=== PATIENT | female | born 1975 | race Caucasian/White ===

== ENCOUNTER → 2017-02-05 | Outpatient (CLI) | payer OTHER ==
[~2017-02-05] MED LIST: CYCL10TA6 PO; [UNRECOGNIZED DRUG - CODE] PO; meloxicam PO
--- NOTE | 2017-02-05 16:09 | MAMMOGRAPHY REPORT ---
BILATERAL FIRST EVER DIGITAL SCREENING MAMMOGRAM TOMOSYNTHESIS WITH CAD: 02/05/2017 CLINICAL HISTORY: Baseline examination. Patient has no complaints. TECHNIQUE: Breast tomosynthesis in addition to standard 2D mammography was performed. Current study was also evaluated with a Computer Aided Detection (CAD) system. COMPARISON: No prior exams were available for comparison. BREAST COMPOSITION: The tissue of both breasts is heterogeneously dense, which may obscure small mas ses. FINDINGS: No suspicious masses, calcifications, or areas of architectural distortion are noted in ei ther breast. IMPRESSION: ACR BI-RADS CATEGORY 1: NEGATIVE There is no mammographic evidence of malignancy. A 1 year screening mammogram is recommended. The pa tient will receive written notification of the results. Approximately 10% of breast cancers are not detected with mammography. A negative mammographic report should not delay biopsy if a clinically suggestive mass is present. Romana Deal M.D. /:02/05/2017 15:44:46 Lab Manager: Vivien Solis, [facility] letter sent: Normal 1/2 BI-RADS Code: ACR BI-RADS Category 1: Negative
== END | disposition home or self-care (01) ==
LOC: C.MAMM 12:32
PROVIDERS: ATTEND Obstetrics & Gynecology
DX: Z12.31 Encounter for screening mammogram for malignant neoplasm of breast (principal)

== ENCOUNTER → 2017-09-14 | Outpatient (CLI) | payer OTHER ==
--- NOTE | 2017-09-14 09:55 | DIAGNOSTIC IMAGING REPORT ---
CHEST 2 VIEWS ROUTINE CLINICAL HISTORY: Cough. Difficulty breathing. COMPARISON STUDY: Chest radiograph May 30, 2014. FINDINGS: Lung volumes are normal. No pneumothorax or pleural effusion is noted. There is no consolidation. Pulmonary vascularity is normal. Cardiomediastinal silhouette is unremarkable. IMPRESSION: No acute cardiopulmonary findings. Electronically signed by: Edson Horn M.D. 09/14/2017 9:54 AM Dictated Date/Time: 09/14/2017 9:53 AM
== END | disposition home or self-care (01) ==
LOC: C.RAD 08:50
PROVIDERS: ATTEND Family Medicine
DX: R05 Cough (principal)

== ENCOUNTER 2021-05-08 17:43 | Observation (INO) ==
[2021-05-08] MEDS ORDERED: KETOROLAC TROMETHAMINE 60 MG/2 ML VIAL IM STA (18:13)
[2021-05-08] MEDS ORDERED: dexAMETHasone**PF** 10 MG/ML VIAL IV ONE (18:13)
[2021-05-08] MEDS ORDERED: KETOROLAC 30 MG/ML VIAL IV ONE (18:21)
--- NOTE | 2021-05-08 18:21 | Emergency Department Note ---
Impression & Plan Lumbar disc disease with radiculopathy ED Provider Note CHIEF COMPLAINT: Lower back, left hip and leg pain HISTORY OF PRESENT ILLNESS: Beatriz Bergman is a 45 year old female with history of lumbar disc disease s/p Coflex and microdiscectomy of L4-[address] Cano of Orthopedic spine who presents to the Emergency Department for evaluation of lower back pain x 1 week now radiating into her left hip and left leg over the past 24 hours. Currently, she describes moderate burning pains which have not been relieved after taking Tylenol, using a TENS unit and warm compresses. She also took 2 tablets of an old prescription of Percocet this morning without relief. Over the last few hours, the patient also developed a dull numbness/tingling in her left lower leg and foot. She denies specific weakness to her legs, no saddle paresthesias or loss of continence of her bowels/bladder. She also denies pain to her neck, upper/mid back and does not have pain, paresthesias or weakness to her arms. The patient denies recent falls or injuries prior to the onset of her symptoms, however she was concerned as she experienced similar symptoms in her right hip/leg prior to when she required back surgery in 2014. She otherwise denies recent fevers/chills, chest pain, shortness of breath, palpitations, abdominal pain, nausea, vomiting, diarrhea or urinary symptoms. REVIEW OF SYSTEMS: 10 systems were reviewed and were negative unless otherwise stated in HPI as above PHYSICAL EXAM: VITALS: Vitals are noted on the nurse's note and reviewed by myself. Vital signs stable. General: Resting in wheelchair, appears uncomfortable but no acute distress Head/Eyes: Normocephalic, atraumatic, PERRL, EOMI Neck: No mid-line cervical tenderness, ROM intact Resp: Good inspiratory effort on room air, lung sounds clear bilaterally CV: Regular rate and rhythm, peripheral pulses palpated Back: No midline tenderness to the thoracic spine. No palpable midline tenderness to the lumbar spine, no obvious step-offs or deformities, no palpable tenderness to the bilateral perispinal musculature Abd: Soft, non-tender to palpation MSK/Neuro: Notes pain to the left hip and entire left leg but unchanged to palpation, also perceives dull numb/tingling to the medina/calf and foot. Right leg non-tender and sensation intact. ROM of the BLE intact with strength 5/5 throughout. Moving BUE without apparent pain or difficulty, sensation and strength intact 5/5 throughout. Integumentary: Warm, dry, no appreciable wounds Neuro: Awake, alert, interacting and answering questions appropriately Differential diagnosis includes fracture, dislocation, subluxation, lumbar disc disease, spinal canal stenosis, lumbar radiculopathy, sciatica, cauda equina syndrome among others were considered. EMERGENCY DEPARTMENT COURSE: Physical exam and history were performed. Nursing triage notes, EMR, and medication list were personally reviewed. Patient with history of lumbar disc disease s/p Coflex and microdiscectomy of L4-[address] Cano of Orthopedic spine presents to the Emergency Department for evaluation of lower back pain x 1 week now radiating into her left hip and left leg over the past 24 hours with further development of paresthesias to her left lower leg over the past few hours as described above. See exam as above. The patient was offered medication. IV access was established and she was given IV Dexamethasone 10 mg and Toradol 30 mg. MRI of the lumbar spine was obtained and reviewed by radiologist and myself as below. This did show large left paracentral/left lateral recess L3-L4 disc extrusion resulting in moderate central canal stenosis with severe left lateral recess narrowing abutting and displacing the transiting left L4 nerve root. Also with mild bilateral L5-S1 neural foraminal narrowing. Upon reevaluation, the patient was still having pain and was having difficulty finding a comfortable position secondary to her discomfort. She was given a dose of IV Dilaudid 1 mg. I discussed the results of the above findings with her. I did contact Orthopedic spine from [facility] [place] - they stated that they would be in the hospital tomorrow and recommended admitting her with the Hospitalist service until they are able to evaluate her tomorrow. I then contacted Dr. Tovar of [facility]. They agreed to evaluate the patient for further management. The patient verbalized her understanding and agreement with this treatment plan. The chart was completed utilizing [employer] Voice Recognition Software. Grammatical errors, random word insertions, pronoun errors, and incomplete sentences are an occasional consequence of this system due to software limitations, ambient noise, and hardware issues. Any formal questions or concerns about the content, text, or information contained within the body of t his dictation should be directly addressed to the provider for clarification. Past Med/Surg History Medical History (Updated 05/08/21 @ 21:30 by Ofelia Keller PA-C) Arthritis Cyst of left ovary Hypertension Lumbar disc prolapse with compression radiculopathy Lumbar stenosis with neurogenic claudication (06/14/14) Radicular pain of right lower extremity Uterine enlargement Surgical History H/O breast biopsy [facility] H/O oral surgery tooth extraction History of ankle surgery History of back surgery lower History of right salpingo-oophorectomy Hx of tonsillectomy Family History (Updated 08/21/19 @ 16:43 by Bernadine Barnett) Grandmother (Maternal) Heart disease Hypertension Grandfather (Paternal) Stroke Hypertension Grandmother (Paternal) Hypertension Liver cancer Grandfather (Maternal) Hypertension Mother Hypertension Denies family history of Ovarian cancer Breast cancer Colorectal cancer Social History Smoking Status: Never smoker Hx Alcohol Use: Yes Feels Safe at Home: Yes Allergies Allergies Allergy/AdvReac Type Severity Reaction Status Date / Time No Known Allergies Allergy Unknown Verified 05/08/21 17:54 Home Meds Home Medications Medication Instructions Recorded Confirmed levonorgestrel 20 mcg/24 hours (7 1 insert IU CONT 08/21/19 05/08/21 yrs) 52 mg intrauterine device lisinopril 10 mg tablet 10 mg PO DAILY 12/01/19 05/08/21 Previous Rx's Medication Instructions Recorded phentermine 15 mg capsule 15 mg PO DAILY #30 cap 05/06/21 Results & Data (ED) Vital Signs Vital Signs - 24 hr 05/08/21 17:45 Temperature 36.8 C Temperature Source Temporal Artery Scan Pulse Rate 91 H Respiratory Rate 18 Respiratory Effort / Characteristics Non-Labored Respiratory Depth Normal Blood Pressure 151/105 H Blood Pressure Mean 120 Pulse Oximetry 98 Oxygen Delivery Method Room Air Sepsis Recent Fever Within 48 Hours No Sepsis New/Unexplained Change in Mental Status No Sepsis Action Taken by Nursing No Action Required Administered Medications Discontinued Medications Dexamethasone Sodium Phosphate (DexamethasonePf 10 Mg/Ml Vial) 10 mg IV NOW ONE Stop: 05/08/21 18:14 Last Admin: 05/08/21 18:39 Dose: 10 mg Documented by: [id number] Hydromorphone HCl (Hydromorphone Inj 1 Mg/Ml Syringe) 1 mg IV NOW STA Stop: 05/08/21 20:35 Last Admin: 05/08/21 20:46 Dose: 1 mg Documented by: [id number] Ketorolac Tromethamine (Ketorolac Tromethamine 60 Mg/2 Ml Vial) 30 mg IM NOW STA Stop: 05/08/21 18:14 Last Admin: 05/08/21 18:39 Dose: Not Given Documented by: [id number] Ketorolac Tromethamine (Ketorolac 30 Mg/Ml Vial) 30 mg IV NOW ONE Stop: 05/08/21 18:22 Last Admin: 05/08/21 18:39 Dose: 30 mg Documented by: [id number] Lorazepam (Lorazepam 1 Mg Tab) 0.5 mg SL NOW STA Stop: 05/08/21 18:28 Last Admin: 05/08/21 18:40 Dose: 0.5 mg Documented by: [id number] Imaging Data Radiologist's Impression: Lumbar Spine MRI 05/08/21 18:15 MR lumbar spine wo con CLINICAL HISTORY: 45 years-old Female with lower back pain into L hip/leg with paresthesias. Acute low back pain with radiation into the left lower extremity COMPARISON: MRI lumbar spine 08/03/2014 TECHNIQUE: Multiplanar, multi sequence MRI of the lumbar spine was performed without intravenous contrast. FINDINGS: Conus medullaris terminates at T12-L1. Signal within the imaged thoracic spinal cord and cauda equina is unremarkable. No acute fracture, subluxation, endplate erosion or significant bone marrow edema. Pipefitter Helper localizer images demonstrate cystic foci of the left ovary which are partially imaged. T12-L1: No central canal or neural foraminal stenosis. L1-L2: No central canal or neural foraminal stenosis. L2-L3: No central canal or neural foraminal stenosis. L3-L4: Mild intervertebral disc space narrowing with disc desiccation and minimal spondylitic spurring. Posterior annular disc bulge with annular fissure. There is a large left paracentral/left lateral recess disc extrusion which measu res 1.3 x 0.6 x 1.6 cm in transverse, AP and craniocaudal dimensions (image 17 series 6 image 10 series 3). There is moderate central canal stenosis with severe narrowing of the left lateral recess. This abuts and displaces the transiting left L4 nerve root. These findings are new from prior. The neural foramina are generally patent. L4-L5: Mild intervertebral disc space narrowing with disc desiccation. Coarse flex device is noted within the interspinous location at L4-L5. The previously noted large disc protrusion at this level is no longer present. Right hemilamine ctomy changes. The central canal and neural foramina appear generally patent. L5-S1: Mild to moderate decubitus space narrowing with mild spondylitic spurring and small posterior disc osteophyte complex with mild facet arthrosis. Decreased size of the previously noted tiny central disc protrusion. Central canal is patent. Mild bilateral neural foraminal narrowing. IMPRESSION: 1. Large left paracentral/left lateral recess L3-L4 disc extrusion results in moderate central canal stenosis with severe left lateral recess narrowing abutting and displacing the transiting left L4 nerve root. 2. Mild bilateral L5-S1 neural foraminal narrowing is new from prior. ACT 112: Negative or not required by law. The above report was generated using voice recognition software. It may contain grammatical, syntax or spelling errors. Electronically signed by: Serjio Cabrera M.D. 05/08/2021 7:43 PM Discharge Plan Visit Data Chief Complaint: Leg Injury/Pain Stated Complaint: Left hip and leg pain and numbness ED Provider: Yo Huertas ED Midlevel Provider: Ofelia Keller Discharge Problem: Lumbar disc disease with radiculopathy Patient Disposition: Being Evaluated by Hospitalist Forms Stand Alone Forms: My [facility] [employer] Prescriptions Prescriptions: No Action phentermine 15 mg capsule 15 mg PO DAILY Qty: 30 RF: 0 Mirena 20 mcg/24 hours (5 yrs) 52 mg intrauterine device 1 insert IU CONT RF: 0 lisinopril 10 mg tablet 10 mg PO DAILY RF: 0 Referrals Referrals: Sayda Perkins DO [Primary Care Provider] -
[2021-05-08] MEDS ORDERED: LORazepam 1 MG TAB SL STA (18:27)
--- NOTE | 2021-05-08 19:45 | Magnetic Resonance Report ---
MR lumbar spine wo con CLINICAL HISTORY: 45 years-old Female with lower back pain into L hip/leg with paresthesias. Acute l ow back pain with radiation into the left lower extremity COMPARISON: MRI lumbar spine 08/03/2014 TECHNIQUE: Multiplanar, multi sequence MRI of the lumbar spine was performed without intravenous cont rast. FINDINGS: Conus medullaris terminates at T12-L1. Signal within the imaged thoracic spinal cord and cauda equina is unremarkable. No acute fracture, subluxation, endplate erosion or significant bone marrow edema. Ingot Passer localizer images demonstrate cystic foci of the left ovary which are partially imaged. T12-L1: No central canal or neural foraminal stenosis. L1-L2: No central canal or neural foraminal stenosis. L2-L3: No central canal or neural foraminal stenosis. L3-L4: Mild intervertebral disc space narrowing with disc desiccation and minimal spondylitic spurri ng. Posterior annular disc bulge with annular fissure. There is a large left paracentral/left lateral recess disc extrusion which measures 1.3 x 0.6 x 1.6 cm in transverse, AP and craniocaudal dimension s (image 17 series 6 image 10 series 3). There is moderate central canal stenosis with severe narrowi ng of the left lateral recess. This abuts and displaces the transiting left L4 nerve root. These find ings are new from prior. The neural foramina are generally patent. L4-L5: Mild intervertebral disc space narrowing with disc desiccation. Coarse flex device is noted w ithin the interspinous location at L4-L5. The previously noted large disc protrusion at this level is no longer present. Right hemilaminectomy changes. The central canal and neural foramina appear gener ally patent. L5-S1: Mild to moderate decubitus space narrowing with mild spondylitic spurring and small posterior disc osteophyte complex with mild facet arthrosis. Decreased size of the previously noted tiny centr al disc protrusion. Central canal is patent. Mild bilateral neural foraminal narrowing. IMPRESSION: 1. Large left paracentral/left lateral recess L3-L4 disc extrusion results in moderate central canal stenosis with severe left lateral recess narrowing abutting and displacing the transiting left L4 ner ve root. 2. Mild bilateral L5-S1 neural foraminal narrowing is new from prior. ACT 112: Negative or not required by law. The above report was generated using voice recognition software. It may contain grammatical, syntax o r spelling errors. Electronically signed by: Serjio Cabrera M.D. 05/08/2021 7:43 PM
[2021-05-08] MEDS ORDERED: HYDROmorphone INJ 1 MG/ML SYRINGE IV STA (20:34)
--- NOTE | 2021-05-08 22:05 | History & Physical Report ---
Date of Service May 08, 2021 Assessment & Plan (1) Lumbar disc disease with radiculopathy: Plan: -Admission to the med/surg w/o telemetry -Lumbar MRI revealed: Large left disc extrusion resulting in moderate central canal stenosis with severe let lateral recess narrowing abutting and displacing the transiting left L4 nerve root. -Consult Ortho (Dr. Cano), Consult appreciated -Pain management as follows: scheduled tylenol 650, 300 mg gabapentin at night, lidocaine patch q12h, toradol 15 mg (Pain 4-7), toradol 30 mg (Pain 8-10) -Q4h neuro checks -AM BMP for toradol use -NPO after midnight for possible procedure -Zofran prn for nausea (2) Hypertension: Plan: -Hold lisinopril for possible procedure History of Present Illness Chief Complaint: Back Pain Primary Care Provider: Sayda Perkins DO Pt is a 45 year old female with history of lumbar disc disease s/p Coflex and microdiscectomy of L4-[address] Cano of Orthopedic spine who is being admitted to the hospital for the CC of back pain. Pt reports that she has had low back pain that has been progressively worsening over the past week. Began at a 4/10 and came to the ED with it at 8/10. Over the past 24 hours the pain began radiating into her left hip and left leg with associated development of paresthesias to her left lower leg over the past few hours. Pt reports utilizing tylenol, warm compresses, TENS unit, and an old Percocet script without significant relief. She denies specific weakness to her legs, no saddle paresthesias or loss of continence of her bowels/bladder. Patient denies recent falls or injuries prior to the onset of her symptoms, however she was concerned as she experienced similar symptoms in her right hip/leg prior to when she required back surgery in 2015. Pt denies fever, chills, diarrhea, chest pain, SOB, or urinary complaints. Pt reports no other complaints at this time. Allergies Allergy/AdvReac Type Severity Reaction Status Date / Time No Known Allergies Allergy Unknown Verified 05/08/21 17:54 Home Medications Medication Instructions Recorded Confirmed Type levonorgestrel 20 mcg/24 hours (7 1 insert IU CONT 08/21/19 05/08/21 History yrs) 52 mg intrauterine device lisinopril 10 mg tablet 10 mg PO DAILY 12/01/19 05/08/21 History phentermine 15 mg capsule 15 mg PO DAILY #30 cap 05/06/21 05/08/21 Rx Past Med/Surg History Medical History (Updated 05/08/21 @ 21:30 by Ofelia Keller PA-C) Arthritis Cyst of left ovary Hypertension Lumbar disc prolapse with compression radiculopathy Lumbar stenosis with neurogenic claudication (06/14/14) Radicular pain of right lower extremity Uterine enlargement Surgical History H/O breast biopsy [facility] H/O oral surgery tooth extraction History of ankle surgery History of back surgery lower History of right salpingo-oophorectomy Hx of tonsillectomy Family History (Updated 08/21/19 @ 16:43 by Bernadine Barnett) Grandmother (Maternal) Heart disease Hypertension Grandfather (Paternal) Stroke Hypertension Grandmother (Paternal) Hypertension Liver cancer Grandfather (Maternal) Hypertension Mother Hypertension Denies family history of Ovarian cancer Breast cancer Colorectal cancer Social History Smoking Status: Never smoker Second Hand Exposure: No; Do You Dip or Chew Tobacco: No; Tobacco Cessation Education Requested by Patient: No Hx Alcohol Use: Yes Alcohol type: wine Hx Substance Use: No Preferred Language: Armenian Communication Ability: Effective Expert Witness Required: No Beliefs That Will Affect Care: None Current Living Situation: Family Other Information That Helps Us Care for You: No Feels Safe at Home: Yes Safety Concerns: Feels Safe At This Time Assistive Devices: None Review of Systems Review of Systems: All systems reviewed & are unremarkable except as noted in HPI & below Physical Exam Constitutional: well developed, well nourished, + obese and cooperative; no acute distress Eyes: + anicteric sclerae Neck: trachea midline, no thyromegaly Respiratory: normal respiratory effort, lungs clear to auscultation Cardiovascular: RRR, no murmur, no edema Gastrointestinal (Abdomen): normal bowel sounds, soft, nontender, no hepatosplenomegaly Musculoskeletal: LLE muscle strength 4/5 in flexion an extension of the knee. Skin: no rashes, warm and dry Neurologic: CN's II-XI intact bilaterally and moves all extremities Patellar reflexes 1/4 b/l. Reduced sensation to touch on the lateral aspect of the LLE compared to the R. Psychiatric: A+Ox3, euthymic affect Eye Contact: good eye contact Results & Data Results & Data ([facility]) Vital Signs (Past 12 Hours) Vital Signs Temp Pulse Pulse Resp BP BP Pulse Ox 05/08/21 21:34 64 16 137/78 96 05/08/21 17:45 36.8 C 91 H 18 151/105 H 98 Laboratory Results Laboratory Results PT 10.5 Seconds (9.0-12.0) 05/08/21 23:14 INR 1.0 (0.9-1.1) 05/08/21 23:14 SARS-CoV-2, RNA, NAAT NEGATIVE (NEGATIVE) 05/08/21 21:28 Impressions Lumbar Spine MRI 05/08/21 18:15 MR lumbar spine wo con CLINICAL HISTORY: 45 years-old Female with lower back pain into L hip/leg with paresthesias. Acute low back pain with radiation into the left lower extremity COMPARISON: MRI lumbar spine 08/03/2014 TECHNIQUE: Multiplanar, multi sequence MRI of the lumbar spine was performed without intravenous contrast. FINDINGS: Conus medullaris terminates at T12-L1. Signal within the imaged thoracic spinal cord and cauda equina is unremarkable. No acute fracture, subluxation, endplate erosion or significant bone marrow edema. Used Car Renovator localizer images demonstrate cystic foci of the left ovary which are partially imaged. T12-L1: No central canal or neural foraminal stenosis. L1-L2: No central canal or neural foraminal stenosis. L2-L3: No central canal or neural foraminal stenosis. L3-L4: Mild intervertebral disc space narrowing with disc desiccation and minimal spondylitic spurring. Posterior annular disc bulge with annular fissure. There is a large left paracentral/left lateral recess disc extrusion which measures 1.3 x 0.6 x 1.6 cm in transverse, AP and craniocaudal dimensions (image 17 series 6 image 10 series 3). There is moderate central canal stenosis with severe narrowing of the left lateral recess. This abuts and displaces the transiting left L4 nerve root. These findings are new from prior. The neural foramina are generally patent. L4-L5: Mild intervertebral disc space narrowing with disc desiccation. Coarse flex device is noted within the interspinous location at L4-L5. The previously noted large disc protrusion at this level is no longer present. Right hemilaminectomy changes. The central canal and neural foramina appear generally patent. L5-S1: Mild to moderate decubitus space narrowing with mild spondylitic spurring and small posterior disc osteophyte complex with mild facet arthrosis. Decreased size of the previously noted tiny central disc protrusion. Central canal is patent. Mild bilateral neural foraminal narrowing. IMPRESSION: 1. Large left paracentral/left lateral recess L3-L4 disc extrusion results in moderate central canal stenosis with severe left lateral recess narrowing abutting and displacing the transiting left L4 nerve root. 2. Mild bilateral L5-S1 neural foraminal narrowing is new from prior. ACT 112: Negative or not required by law. The above report was generated using voice recognition software. It may contain grammatical, syntax or spelling errors. Electronically signed by: Serjio Cabrera M.D. 05/08/2021 7:43 PM Code Status & VTE Plan VTE Prophylaxis Plan VTE Prophylaxis will be ordered: Yes Supervising Physician Co-Signing Physician Notes Patient seen and examined, chart reviewed, case discussed with Dr. Singh and I agree with his assessment and plan as documented above. Briefly, patient is a 45yo female with progresssive right sided back pain with radicular symptoms. MRI with disc bulge and extrusion with L4 nerve compression. No cauda equina symptoms. No fever, chills. No trauma On exam she is afebrile, HD stable, NAD. Resting in some discomfort Skin - intact HEENT - NC/AT, PERRL, MMM, Neck supple Heart - +S1/S2, regular Lungs - CTA Abd - +BS, soft, NT/ND Ext - no edema, 2+ pulses Labs and images reviewed Assessment/Plan -Pain management -Ortho consultation appreciated -Remainder of plan as above Resident Activity Tracking Resident Involvement: Resident Care Provided Care Provided: Adult Hospital Medicine
[2021-05-08] MEDS ORDERED: KETOROLAC TROMETHAMINE 15 MG/ML VIAL IV PRN (22:46)
[2021-05-08] MEDS ORDERED: LEVONORGESTREL IUD PV SCH (22:46)
[2021-05-08] MEDS ORDERED: ONDANSETRON INJ 2 MG/ML 2 ML VIAL IV PRN (22:46)
[2021-05-08] MEDS ORDERED: KETOROLAC 30 MG/ML VIAL IV PRN (22:46)
[2021-05-08] MEDS ORDERED: POLYETHYLENE (MIRALAX) 17 GM PACK PO PRN (22:46)
[2021-05-08 23:40] LABS: Prothrombin Time 10.5 Seconds (9.0-12.0)
[2021-05-08] MEDS: ACETAMINOPHEN 325 MG TAB PO SCH (23:53)
--- NOTE | 2021-05-09 00:30 | Billing Data ---
Date of Service May 09, 2021 Coding Level of Care Code INT OBSERVATION CARE 50M LVL 2
[2021-05-09] MEDS: ACETAMINOPHEN 325 MG TAB PO SCH ×6 (02:52→22:10)
[2021-05-09 06:35] LABS: BUN Creatinine Ratio 20.1 (10-20); Calcium 9.2 mg/dl (8.5-10.1); Creatinine Clr Calc Pharmacy 116.1 ml/min; Est GFR (African American) 105.5 ml/min
--- NOTE | 2021-05-09 08:35 | Hospitalist Progress Note ---
Date of Service May 09, 2021 Assessment & Plan (1) Lumbar disc disease with radiculopathy: Plan: -Admission to the med/surg w/o telemetry -Lumbar MRI revealed: Large left disc extrusion resulting in moderate central canal stenosis with severe let lateral recess narrowing abutting and displacing the transiting left L4 nerve root. -Consult Ortho (Dr. Cano), Consult appreciated -Pain management as follows: scheduled tylenol 650, 300 mg gabapentin at night, lidocaine patch q12h, toradol 15 mg (Pain 4-7), toradol 30 mg (Pain 8-10) -Q4h neuro checks -AM BMP for toradol use -NPO after midnight for possible procedure -Zofran prn for nausea (2) Hypertension: Plan: -Hold lisinopril for possible procedure Admission and Anticipated Discharge Date Admission Date: May 08, 2021 Results & Data Results & Data ([facility]) Vital Signs (Past 12 Hours) Vital Signs Temp Pulse Resp BP BP Pulse Ox 05/09/21 07:11 98.1 F 62 14 126/81 96 05/08/21 22:53 98.6 F 75 16 156/92 H 98 05/08/21 22:51 98.6 F 75 16 156/92 H 98 05/08/21 22:50 98.6 F 75 16 156/92 H 98 05/08/21 21:34 64 16 137/78 96 PG Care Time/CCT Total # of Minutes Spent Total Time Spent with Patient: Total time spent is greater than 50% in coordination of care (as documented) at patient's floor/unit and/or counseling patient: Coding Diagnoses Lumbar disc disease with radiculopathy M51.16 Hypertension I10
--- NOTE | 2021-05-09 08:39 | Orthopedic Consultation ---
Date of Consultation May 09, 2021 Assessment & Plan (1) Lumbar disc disease with radiculopathy: Assessment hernia nucleus pulposus L3-L4 on the left with radiculopathy. Plan Long discussion with this patient reviewing MRI findings and clinical presentation. She does have an MRI demonstrating herniated nucleus pulposus L3- L4 on the left with caudal migration and a fragment along the medial aspect of the L4 pedicle with significant displacement traversing nerve root. This point we discussed treatment plan. We may consider a lumbar epidural injection. She does understand if she fails to respond to this lumbar laminectomy partial discectomy may be warranted. History of Present Illness Reason for Consultation: Left-sided lumbar radiculopathy Attending Physician: Goran Rutherford MD History of Present Illness This is a 45-year-old female known to me that presents to the ER last night with severe left leg pain. She states she began having back pain approximate week ago. She denies any precipitating trauma fall or event. It progressed into buttock pain and now severe anterior thigh pain radiating to the anterior tibia. The right lower extremities asymptomatic. She did work yesterday from a wheelchair but the symptoms have progressed and she is experiencing at least an 8 out of 10 pain. She denies any loss of bowel bladder function. She does describe breakaway weakness to the left quadricep. Allergies Allergy/AdvReac Type Severity Reaction Status Date / Time No Known Allergies Allergy Unknown Verified 05/08/21 17:54 Home Medications Medication Instructions Recorded Confirmed Type levonorgestrel 20 mcg/24 hours (7 1 insert IU CONT 08/21/19 05/08/21 History yrs) 52 mg intrauterine device lisinopril 10 mg tablet 10 mg PO DAILY 12/01/19 05/08/21 History phentermine 15 mg capsule 15 mg PO DAILY #30 cap 05/06/21 05/08/21 Rx Patient History Medical History (Updated 05/08/21 @ 21:30 by Ofelia Keller PA-C) Arthritis Cyst of left ovary Hypertension Lumbar disc prolapse with compression radiculopathy Lumbar stenosis with neurogenic claudication (06/14/14) Radicular pain of right lower extremity Uterine enlargement Surgical History H/O breast biopsy [facility] H/O oral surgery tooth extraction History of ankle surgery History of back surgery lower History of right salpingo-oophorectomy Hx of tonsillectomy Family History (Updated 08/21/19 @ 16:43 by Bernadine Barnett) Grandmother (Maternal) Heart disease Hypertension Grandfather (Paternal) Stroke Hypertension Grandmother (Paternal) Hypertension Liver cancer Grandfather (Maternal) Hypertension Mother Hypertension Denies family history of Ovarian cancer Breast cancer Colorectal cancer Social History Smoking Status: Never smoker Second Hand Exposure: No; Do You Dip or Chew Tobacco: No; Tobacco Cessation Education Requested by Patient: No Hx Alcohol Use: Yes Alcohol type: wine Hx Substance Use: No Preferred Language: Montserratian Communication Ability: Effective Encyclopedia Research Worker Required: No Beliefs That Will Affect Care: None Current Living Situation: Family Other Information That Helps Us Care for You: No Feels Safe at Home: Yes Safety Concerns: Feels Safe At This Time Assistive Devices: None Physical Exam Physical Exam: On exam patient is comfortable sitting at the bedside chair. She has no tension signs with straight leg raising on the right leg. There is severe tension signs with straight leg raising on the left lower extremity. She exhibits sensory deficits to the left lower extremity. She has diminished deep tendon reflexes bilaterally. She has a plus out of 5 right plantar flexion dorsiflexion extensor pollicis longus quadricep. On the left she had 5 or 5 plantar flexion dorsiflexion extensor pollicis longus with a 4 - quadricep. Results & Data ([facility]) Vital Signs (Past 12 Hours) Vital Signs Temp Pulse Resp BP BP Pulse Ox 05/09/21 07:11 36.7 C 62 14 126/81 96 05/08/21 22:53 37.0 C 75 16 156/92 H 98 05/08/21 22:51 37.0 C 75 16 156/92 H 98 05/08/21 22:50 37.0 C 75 16 156/92 H 98 05/08/21 21:34 64 16 137/78 96
[2021-05-09] MEDS ORDERED: LIDOCAINE 5% 1 PATCH TD SCH (09:00)
[2021-05-09] MEDS: LIDOCAINE 5% 1 PATCH TD SCH (09:44)
--- NOTE | 2021-05-09 10:04 | XRay Report ---
XR lumbar spine 2-3V CLINICAL HISTORY: back and leg pain TECHNIQUE: 3 views of the lumbar spine were obtained. Comparison: None available at the time of this dictation. FINDINGS: No fractures or subluxations are identified. Orthopedic hardware seen at the L5-S1 spinous process. D egenerative changes are seen in the lumbar spine. IMPRESSION: No acute fracture or subluxation. ACT 112: Negative or not required by law. Electronically signed by: Gio Avila M.D. 05/09/2021 10:03 AM
--- NOTE | 2021-05-09 10:15 | Hospitalist Progress Note ---
Date of Service May 09, 2021 Assessment & Plan (1) Lumbar disc herniation with radiculopathy: Plan: Admission to the med/surg w/o telemetry -Lumbar MRI revealed: Large left disc extrusion resulting in moderate central canal stenosis with severe let lateral recess narrowing abutting and displacing the transiting left L4 nerve root. -Consult placed to Dr. Cano, appreciate his recommendations. Consider lumbar epidural injection per Dr. Cano's note, pain management has been consulted -Pain management as follows: scheduled Tylenol 650, 300 mg gabapentin at night, lidocaine patch q12h, toradol 15 mg (Pain 4-7), toradol 30 mg (Pain 8-10) -Q4h neuro checks -AM BMP for toradol use -Zofran prn for nausea -Seen this morning by Dr. Younger with pain management, will proceed with transforaminal epidural steroid injection, in addition recommended uptitration of Gabapentin and addition of Baclofen (2) Hypertension: Plan: -Lisinopril held for possible procedure -Monitor BP Plan: No clear indication how long patient should be monitored following epidural injection. Will coordinate with Dr. Cano, if pt fails injection, I believe his intent is to proceed with laminectomy but unsure as to when. Admission and Anticipated Discharge Date Admission Date: May 08, 2021 [address] Mrs. Bergman was seen on rounds this morning. Hospitalized on 05/08 for c/o low back pain that has been progressively worsening over the past week now with numbness/tingling down left leg. MRI demonstrated HNP L3-L4 on left resulting in moderate central canal stenosis w/ severe left lateral recess narrowing abutting and displacing the transiting left L4 nerve root c/w her clinical presentation. Pt is resting semi-comfortable in bedside chair. She reports ongoing L hip burning pain with radiation down her leg, lateral aspect numbness/tingling. She reported having discomfort when lying in bed and seems to be a little better with sitting in the chair. Pain is worsened by getting up and attempting to ambulate. She denies loss of renata/bladder control, saddle anesthesias. Denies chest pain, dyspnea, n/v/d, f/c, headache, or gu symptoms Review of Systems Review of Systems: CONSTITUTIONAL: Denies weight loss/gain, fever and chills, fatigue, malaise, generalized weakness. HEENT: Denies changes in vision and hearing. RESPIRATORY: Denies SOB, cough, wheezing. CV: Denies palpitations, CP, lower extremity edema, orthopnea, PND. GI: Denies abdominal pain, nausea, vomiting and diarrhea. : Denies dysuria and urinary frequency, urgency, hesitancy. MUSCULOSKELETAL: +back pain and L hip pain. SKIN: Denies rash and pruritus. NEUROLOGICAL: +numbness/tingling L leg. Denies headache, syncope, focal weakness. PSYCHIATRIC: Denies recent changes in mood. Denies anxiety and depression. Physical Exam Physical Exam: GENERAL: 45 yo WF. Pleasant, cooperative, NAD. LUNGS: Clear to auscultation bilaterally. No W/R/R. CARDIOVASCULAR: RRR w/o M/G/R. No JVD. ABDOMEN: Soft, non-tender. Normal BS x 4 quad. EXTREMITIES: No edema. Non-tender. Peripheral pulses +2/4. +L straight leg raise. NEUROLOGIC: A&O x3. Decreased sensation in LLE. PSYCHIATRIC: Cooperative. Appropriate mood and affect. SKIN: Warm, dry, intact. No rashes or lesions. Results & Data Results & Data ([facility]) Vital Signs (Past 12 Hours) Vital Signs Temp Pulse Resp BP BP Pulse Ox 05/09/21 07:11 36.7 C 62 14 126/81 96 05/08/21 22:53 37.0 C 75 16 156/92 H 98 05/08/21 22:51 37.0 C 75 16 156/92 H 98 05/08/21 22:50 37.0 C 75 16 156/92 H 98 Laboratory Results 05/09/21 05:47 PG Care Time/CCT Total # of Minutes Spent Total Time Spent with Patient: Total time spent is greater than 50% in coordination of care (as documented) at patient's floor/unit and/or counseling patient: Coding Level of Care Code 67545 Subseq Hosp Care Lvl 2 Diagnoses Hypertension I10 Lumbar disc herniation with radiculopathy M51.16
--- NOTE | 2021-05-09 11:12 | Pain Management Consultation ---
Date of Consultation May 09, 2021 Assessment & Plan (1) Lumbar disc herniation with radiculopathy: Present on Admission?: Yes 1. Recommend left L3-4 transforaminal epidural steroid injection to address disc extrusion. Patient was counseled that with a potential free fragment this may potentiate movement of the fragment requiring urgent decomp ression. Patient agrees to proceed. She is currently n.p.o. for OR today. We discussed the risk, benefits, expectations of the procedure. 2. Recommend continuation of gabapentin but will upward titrate to 300 mg p.o. 3 times daily. In addition we will initiate baclofen 5 to 10 mg p.o. twice josh ly as needed muscle spasm. 3. Recommend continuation of Lidoderm patch. 4. Judicious use of oral opiates. 5. He very much for this consultation. History of Present Illness Attending Physician: Goran Rutherford MD History of Present Illness 45-year-old female previously known to the [facility] pain management office in 2014 for lumbar radiculopathy presents to the [facility] emergency room on 05/08/2021 with acute onset of left L3-4 radicular symptoms. MRI imaging shows a L3-4 large left disc extrusion with caudal migration and displacement of the transiting left L4 nerve root. She reports the pain has been worsening over the last week without known injury ranging between 3 and 8 out of 10 sharp shooting and constant in character. Upon further questioning, she reports that her back pain has been worsening since March after starting the exercise regimen P90 with her . Pain is worse with walking and improved with lying down/rest. She denies bowel or bladder incontinence, falls, motor weakness, footdrop, fever, chills, night sweats. Previous interventions include Tylenol, heat, TENS unit, Percocet without relief. IV steroids/Toradol in the emergency room provided minimal benefit. She previously has a history of an L4-5 microdiscectomy in 2014 after failing transforaminal epidural steroid injections. Pain Assessment Pain scale - at its best (0-10): 3 Pain scale - at its worst (0-10): 8 Allergies Allergy/AdvReac Type Severity Reaction Status Date / Time No Known Allergies Allergy Unknown Verified 05/08/21 17:54 Home Medications Medication Instructions Recorded Confirmed Type levonorgestrel 20 mcg/24 hours (7 1 insert IU CONT 08/21/19 05/08/21 History yrs) 52 mg intrauterine device lisinopril 10 mg tablet 10 mg PO DAILY 12/01/19 05/08/21 History phentermine 15 mg capsule 15 mg PO DAILY #30 cap 05/06/21 05/08/21 Rx Pain History Pain Location Full Body Front + Back: 1. 2. Pain Intensity [facility] Combined Pain Scale: 7-Severe - Pain prevents productive activity. Impossible to tolerate. Pain scale - at its best (0-10): 3 Pain scale - at its worst (0-10): 8 Patient History Medical History (Updated 05/09/21 @ 11:11 by Paz Younger DO) Arthritis Cyst of left ovary Hypertension Lumbar disc herniation with radiculopathy Left L3-4 disc extrusion with caudal migration and possible free fragment Lumbar stenosis with neurogenic claudication (06/14/14) Radicular pain of right lower extremity Uterine enlargement Surgical History (Updated 05/09/21 @ 11:10 by Paz Younger DO) H/O breast biopsy [facility] H/O oral surgery tooth extraction History of ankle surgery History of back surgery Right L4-5 microdiscectomy in 2015 History of right salpingo-oophorectomy Hx of tonsillectomy Family History Grandmother (Maternal) Heart disease Hypertension Grandfather (Paternal) Stroke Hypertension Grandmother (Paternal) Hypertension Liver cancer Grandfather (Maternal) Hypertension Mother Hypertension Denies family history of Ovarian cancer Breast cancer Colorectal cancer Social History Smoking Status: Never smoker Second Hand Exposure: No; Do You Dip or Chew Tobacco: No; Tobacco Cessation Education Requested by Patient: No Hx Alcohol Use: Yes Alcohol type: wine Hx Substance Use: No Preferred Language: Yi Communication Ability: Effective Beader Required: No Beliefs That Will Affect Care: None marital status: Current Living Situation: Family Other Information That Helps Us Care for You: No Feels Safe at Home: Yes Safety Concerns: Feels Safe At This Time Assistive Devices: None Physical Exam Physical Exam: Constitutional: Well-developed, well-nourished, healthy- appearing,overweight Psych: Awake, alert, and oriented 3 with normal affect and mood. Recent memory appears grossly intact. Calm and cooperative on examination Eyes: Pupils are equally round and reactive to light with normal size pupils, eyelids appear normal Ear, nose, mouth, and throat: Moist nasal and oral membranes, lips and tongues appear normal, no external ear abnormalities are noted Neck: The trachea is midline without deviation and no thyromegaly is noted Respiratory: Normal respiratory effort without distress, no audible wheezes or rhonchi CV: Normal S1 and S2, 2+ dorsalis pedis and posterior tibial pulses Chest: Deferred Musculoskeletal: Head is normocephalic and atraumatic, gait not observed, able to situp easily in bed. Cervical: Lordotic curve: Normal Range of motion is normal with extension, flexion, side-bending, rotation Strength: Strength is grossly equal bilaterally with 5 out of 5 strength in all planes Lumbar: Lordotic curve: Slight exaggeration of typical lordotic curve, well healed lumbar incision Range of motion is decreased with extension, adequate flexion, side-bending, rotation Tenderness: Moderately tender over the left axial midline Facet provocation: Negative bilaterally Straight leg raise: Positive on the left negative on the right Step-off injuries: None Strength: Strength is equal bilaterally with 5 out of 5 strength in all planes Sensation of lower extremities: Intact bilaterally Deep tendon reflexes: Rated at 1+ in right L4 and bilateral S1, 0/4 left L4 Myofascial spasm: moderate appreciable lumbar spasm. a few scattered discrete trigger points noted Greater trochanters: Nontender bilaterally Sacroiliac joints: Nontender bilaterally Pathologic reflexes noted: None Skin: No rashes, lesions, ulcers, or induration noted Neuro: No nystagmus noted, the tongue is midline, the patient is able to rotate their head bilaterally : Deferred Results ([facility]) Diagnostic Review MRI: non enhanced, reports reviewed and findings discussed with patient MRI Findings: Lumbar Spine MRI 05/08/21 18:15 \ CLINICAL HISTORY: 45 years-old Female with lower back pain into L hip/leg with paresthesias. Acute low back pain with radiation into the left lower extremity COMPARISON: MRI lumbar spine 08/03/2014 TECHNIQUE: Multiplanar, multi sequence MRI of the lumbar spine was performed without intravenous contrast. FINDINGS: Conus medullaris terminates at T12-L1. Signal within the imaged thoracic spinal cord and cauda equina is unremarkable. No acute fracture, subluxation, endplate erosion or significant bone marrow edema. Legal Transcriber localizer images demonstrate cystic foci of the left ovary which are partially imaged. T12-L1: No central canal or neural foraminal stenosis. L1-L2: No central canal or neural foraminal stenosis. L2-L3: No central canal or neural foraminal stenosis. L3-L4: Mild intervertebral disc space narrowing with disc desiccation and minimal spondylitic spurring. Posterior annular disc bulge with annular fissure. There is a large left paracentral/left lateral recess disc extrusion which measures 1.3 x 0.6 x 1.6 cm in transverse, AP and craniocaudal dimensions (image 17 series 6 image 10 series 3). There is moderate central canal stenosis with severe narrowing of the left lateral recess. This abuts and displaces the transiting left L4 nerve root. These findings are new from prior. The neural foramina are generally patent. L4-L5: Mild intervertebral disc space narrowing with disc desiccation. Coarse flex device is noted within the interspinous location at L4-L5. The previously noted large disc protrusion at this level is no longer present. Right hemilaminectomy changes. The central canal and neural foramina appear generally patent. L5-S1: Mild to moderate decubitus space narrowing with mild spondylitic spurring and small posterior disc osteophyte complex with mild facet arthrosis. Decreased size of the previously noted tiny central disc protrusion. Central ca nal is patent. Mild bilateral neural foraminal narrowing. IMPRESSION: 1. Large left paracentral/left lateral recess L3-L4 disc extrusion results in moderate central canal stenosis with severe left lateral recess narrowing abutting and displacing the transiting left L4 nerve root. 2. Mild bilateral L5-S1 neural foraminal narrowing is new from prior. Previous Records Review Previous Records: personally reviewed by me Opioid Risk Assessment Opioid Risk Assessment: risk assessment performed and no issues identified
[2021-05-09] MEDS ORDERED: BACLOFEN 10 MG TAB PO PRN (12:39)
--- NOTE | 2021-05-09 14:33 | Operative Report ---
Post Operative Report Pre & Post Diagnosis Operation Date: 05/09/21 11:40 Pre-Op Diagnosis: L3-L4 Lumbar disc herniation with radiculopathy Post-Op Diagnosis: L3-L4 Lumbar disc herniation with radiculopathy I identified the patient and participated in the time-out.: Yes Procedure Operation Date: 05/09/21 11:40 Actual Procedures p Left L3-4 Transforaminal Epiduarl Steroid Injection(Left) - Paz Younger DO Surgeon Paz Younger, Breaker Tender None Estimated Blood Loss 0 Findings Consistent with Post-Op Diagnosis Fluids 0 Specimens 0 Drains 0 Anesthesia Type Local Complications none Disposition Accompanied Patient To Recovery: Yes Disposition: Recovery Room (Patient went back to her floor bed, report given to floor RN as she had no sedation) Indications Lumbar radiculopathy with lumbar disc extrusion Description of Procedure TRANSFORAMINAL EPIDURAL STEROID INJECTION (DIAGNOSTIC) Diagnosis: Lumbar Radiculitis and Herniated Disc Level injected: Left L3-4 Surgeon: Dr. Paz Younger Anesthesia: local Material forwarded to lab: none Prior to starting, the Patients diagnosis and the procedure were reviewed with the patient in detail. Possible risks, complications and alternative therapies were also reviewed. Patients questions were answered. Informed consent was obtained. Allergies and medication list was reviewed. The patient was brought to the fluoroscopy room and placed in prone position on the table. Immediately prior to starting the procedure, a ``time out was conducted with the staff and the patient where the patient was identified, proposed procedure was verified, consent was reviewed and the proper site for the planned procedure was identified. Fluoroscopy was utilized in performing the procedure to assist the placement of the needle, to evaluate the final position of the needle prior to injection and to avoid intravascular injection. Monitors used included intermittent blood pressure with automated device, continuous pulse oximetry and level of consciousness. Patient was not given any intravenous sedation and constant verbal contact was maintained throughout the procedure. Lumbar-sacral area was prepped with duraprep and betadine solution. Sterile drapes were applied. The appropriate interspace and disk was identified in a true AP view. The fluoroscope was then rotated to obtain a decubitus view in such a manner so that the superior articular process of the inferior vertebra was bisecting the pars inter-articularis of the vertebra above in two or in the 6 oclock position. Next, 4 mL of 2% lidocaine preservative-free was injected for local skin anesthesia. Then, a 22 Gauge 5 inch curved (15 degrees) spinal needle was inserted through the skin and subcutaneous tissues and advanced in a co-axial technique. Needle tip was first placed on the infero-lateral margin of the pars inter-articularis. Once the bony margin was contacted, the C-arm was rotated to obtain a lateral view. The needle was slowly ``walked off the bone and advanced toward the anterior and superior aspect of the foramen. Patient did not experience any pain or paresthesia. A six inch micro bore tubing was attached to the needle and aspiration did not demonstrate CSF or blood. Nonionic Isovue contrast 1ml was injected via the needle under live fluoroscopy. Spread of the contrast along the nerve root. AP view was checked to ensure the needle tip was in the close proximity to the nerve root an in the proximal neural foramen lateral to the inferior articular process and in the 6 oclock position. Additional 1ml of the contrast was injected under live fluoroscopy. Neither subdural or subarachnoid spread nor intravascular uptake was noted on plain fluoroscopy. Approximately 10 to 15 second digital subtraction angiogram at 3 f/s rate was done in an AP view with additional contrast. No vascular uptake was noted. Next 80mg depomedrol was injected followed by 2% lidocaine- MPF 1ml to flush the needle. The patient did not experience pain during the injection. Adequate hemostasis was noted. A sterile Band-Aid was applied to the injection site. Report was given to the floor RN. She went back to her room as she was only provided local anesthesia. Follow-up appointment has been made. I attest to the content of the Intraoperative Record and any orders documented therein. Any exceptions are noted below.
[2021-05-09] MEDS ORDERED: HYDROCODONE/ACETAMOPHEN 5/325MG TAB PO PRN (14:34)
[2021-05-09] MEDS ORDERED: LIDOCAINE 2% 20 MG/ML 5 ML SYR IV ONE (14:46)
[2021-05-09] MEDS ORDERED: methylPREDNISolone acetate 80 MG/ML VIAL IM ONE (14:49)
[2021-05-09] MEDS ORDERED: IOPAMIDOL INJ 61% 15 ML VIAL INSTIL ONE (14:53)
[2021-05-09] MEDS: GABAPENTIN 300 MG CAP PO SCH (19:57)
[2021-05-09] MEDS ORDERED: GABAPENTIN 300 MG CAP PO SCH (21:00)
[2021-05-10] MEDS: ACETAMINOPHEN 325 MG TAB PO SCH ×3 (02:48→12:15)
[2021-05-10 06:40] LABS: BUN Creatinine Ratio 28.3 (10-20); Creatinine Clr Calc Pharmacy 122.3 ml/min; Est GFR (African American) 112.4 ml/min; Est GFR (Non-African American) 96.9 ml/min; Potassium 3.7 mmol/L (3.5-5.1)
[2021-05-10] MEDS: GABAPENTIN 300 MG CAP PO SCH ×2 (08:04→13:44)
[2021-05-10] MEDS: LIDOCAINE 5% 1 PATCH TD SCH (08:04)
--- NOTE | 2021-05-10 10:19 | Orthopedic Progress Note ---
Date of Service May 10, 2021 Assessment & Plan (1) Lumbar disc herniation with radiculopathy: Plan: At this time she will most likely go home today and follow-up on Wednesday with pain management. She understands if she has return of her symptoms and decline in status at that point we may strongly consider lumbar laminotomy L3-L4 with excision of herniated free fragment. Admission and Anticipated Discharge Date Admission Date: May 08, 2021 Subjective Patient did successfully undergo a lumbar epidural injection with attention to L3-L4 level yesterday. She had marked improvement of her pain was able to sleep well last night. She states the more this morning she has some return of her symptoms but it is improved overall. We discussed possible discharge home today and she will follow up with pain management on Wednesday. Physical Exam Physical Exam: On exam she is in chair at the bedside. No gross strength deficits. Results & Data ([facility]) Vital Signs (Past 12 Hours) Vital Signs Temp Pulse Resp BP Pulse Ox 05/10/21 07:35 37.1 C 72 16 130/78 97 05/09/21 22:35 37 C 71 16 118/70 98
--- NOTE | 2021-05-10 11:10 | Discharge Summary ---
Date of Service May 10, 2021 Admission HPI Per Admitting Provider Pt is a 45 year old female with history of lumbar disc disease s/p Coflex and microdiscectomy of L4-[address] Cano of Orthopedic spine who is being admitted to the hospital for the CC of back pain. Pt reports that she has had low back pain that has been progressively worsening over the past week. Began at a 4/10 and came to the ED with it at 8/10. Over the past 24 hours the pain began radiating into her left hip and left leg with associated development of paresthesias to her left lower leg over the past few hours. Pt reports utilizing tylenol, warm compresses, TENS unit, and an old Percocet script without significant relief. She denies specific weakness to her legs, no saddle paresthesias or loss of continence of her bowels/bladder. Patient denies recent falls or injuries prior to the onset of her symptoms, however she was concerned as she experienced similar symptoms in her right hip/leg prior to when she required back surgery in 2014. Pt denies fever, chills, diarrhea, chest pain, SOB, or urinary complaints. Pt reports no other complaints at this time. Admission Exam Per Admitting Provider Constitutional: well developed, well nourished, + obese and cooperative; no acute distress Eyes: + anicteric sclerae Neck: trachea midline, no thyromegaly Respiratory: normal respiratory effort, lungs clear to auscultation Cardiovascular: RRR, no murmur, no edema Gastrointestinal (Abdomen): normal bowel sounds, soft, nontender, no hepatosplenomegaly Musculoskeletal: LLE muscle strength 4/5 in flexion an extension of the knee. Skin: no rashes, warm and dry Neurologic: CN's II-XI intact bilaterally and moves all extremities Patellar reflexes 1/4 b/l. Reduced sensation to touch on the lateral aspect of the LLE compared to the R. Psychiatric: A+Ox3, euthymic affect Eye Contact: good eye contact Principal Diagnosis Lumbar disc herniation with radiculopathy Discharge Exam GENERAL: 45 yo WF. Pleasant, cooperative, NAD. LUNGS: Clear to auscultation bilaterally. No W/R/R. CARDIOVASCULAR: RRR w/o M/G/R. No JVD. ABDOMEN: Soft, non-tender. Normal BS x 4 quad. EXTREMITIES: No edema. Non-tender. Peripheral pulses +2/4. +L straight leg raise. NEUROLOGIC: A&O x3. Decreased sensation in LLE. PSYCHIATRIC: Cooperative. Appropriate mood and affect. SKIN: Warm, dry, intact. No rashes or lesions. Discharge Data Allergies Allergy/AdvReac Type Severity Reaction Status Date / Time No Known Allergies Allergy Unknown Verified 05/08/21 17:54 Consultations 1. Orthopedics, Dr. Cano, was consulted -- please see his full note for details, recommendation was for epidural lumbar injection 2. Pain management consulted, Dr. Younger -- please see her full consult note for details. She performed lumbar epidural injection on 05/09 Procedures Performed Operation Date: 05/09/21 11:40 Actual Procedures p Left L3-4 Transforaminal Epiduarl Steroid Injection(Left) - Paz Younger DO Ordered Studies Lumbar Spine MRI 05/08/21 18:15 MR lumbar spine wo con CLINICAL HISTORY: 45 years-old Female with lower back pain into L hip/leg with paresthesias. Acute low back pain with radiation into the left lower extremity COMPARISON: MRI lumbar spine 08/03/2014 TECHNIQUE: Multiplanar, multi sequence MRI of the lumbar spine was performed without intravenous contrast. FINDINGS: Conus medullaris terminates at T12-L1. Signal within the imaged thoracic spinal cord and cauda equina is unremarkable. No acute fracture, subluxation, endplate erosion or significant bone marrow edema. Dried Yeast Supervisor localizer images demonstrate cystic foci of the left ovary which are partially imaged. T12-L1: No central canal or neural foraminal stenosis. L1-L2: No central canal or neural foraminal stenosis. L2-L3: No central canal or neural foraminal stenosis. L3-L4: Mild intervertebral disc space narrowing with disc desiccation and minimal spondylitic spurring. Posterior annular disc bulge with annular fissure. There is a large left paracentral/left lateral recess disc extrusion which measures 1.3 x 0.6 x 1.6 cm in transverse, AP and craniocaudal dimensions (image 17 series 6 image 10 series 3). There is moderate central canal stenosis with severe narrowing of the left lateral recess. This abuts and displaces the transiting left L4 nerve root. These findings are new from prior. The neural foramina are generally patent. L4-L5: Mild intervertebral disc space narrowing with disc desiccation. Coarse flex device is noted within the interspinous location at L4-L5. The previously noted large disc protrusion at this level is no longer present. Right hemilaminectomy changes. The central canal and neural foramina appear generally patent. L5-S1: Mild to moderate decubitus space narrowing with mild spondylitic spurring and small posterior disc osteophyte complex with mild facet arthrosis. Decreased size of the previously noted tiny central disc protrusion. Central canal is patent. Mild bilateral neural foraminal narrowing. IMPRESSION: 1. Large left paracentral/left lateral recess L3-L4 disc extrusion results in moderate central canal stenosis with severe left lateral recess narrowing abutting and displacing the transiting left L4 nerve root. 2. Mild bilateral L5-S1 neural foraminal narrowing is new from prior. ACT 112: Negative or not required by law. The above report was generated using voice recognition software. It may contain grammatical, syntax or spelling errors. Electronically signed by: Serjio Cabrera M.D. 05/08/2021 7:43 PM Lumbar Spine X-Ray 05/09/21 08:39 XR lumbar spine 2-3V CLINICAL HISTORY: back and leg pain TECHNIQUE: 3 views of the lumbar spine were obtained. Comparison: None available at the time of this dictation. FINDINGS: No fractures or subluxations are identified. Orthopedic hardware seen at the L5- S1 spinous process. Degenerative changes are seen in the lumbar spine. IMPRESSION: No acute fracture or subluxation. ACT 112: Negative or not required by law. Electronically signed by: Gio Avila M.D. 05/09/2021 10:03 AM Hospital Course (1) Lumbar disc herniation with radiculopathy: Admission to the med/surg w/o telemetry -Lumbar MRI revealed: Large left disc extrusion resulting in moderate central canal stenosis with severe let lateral recess narrowing abutting and displacing the transiting left L4 nerve root. -Consult placed to Dr. Cano, appreciate his recommendations. Consider lumbar epidural injection per Dr. Cano's note, pain management has been consulted -Pain management as follows: scheduled Tylenol 650, 300 mg gabapentin at night, lidocaine patch q12h, toradol 15 mg (Pain 4-7), toradol 30 mg (Pain 8-10) -Q4h neuro checks -AM BMP for toradol use -Zofran prn for nausea -Seen by Dr. Younger 05/09 with plans to proceed with transforaminal epidural steroid injection which was performed 05/09 -Dr. Younger also recommended uptitration of Gabapentin with addition of Baclofen which was added to pt's regimen -This morning, pt with noted improvement in pain, currently rating pain 4/10 with ambulation but able to ambulate independently -D/w Dr. Cano this morning, will plan for discharge home today, pt has a scheduled f/u with Dr. Younger on Saturday 05/12. -Rest and only perform activity as able, no heavy lifting or strenuous activity (2) Hypertension: -Resume Lisinopril as prescribed Discharge home today -- rx provided for Balcofen PRN and [place] to be used only for breakthrough pain. Gabapentin increased to 300mg TID, new rx also sent for that. Lidoderm patches can also be continued daily if desired. Total Time Total Time Spent Total Time Spent (In Minutes): <30 minutes Discharge Plan Discharge Items Patient Disposition: Home - Self-Care Reason For Visit: BACK PAIN Discharge Diagnosis: Lumbar disc herniation with radiculopathy Activity: Per Instructions section Activity Comment: Activity as tolerated, rest Non-emergency contact: Primary Care Provider, Surgeon and Pain Management Call non-emergency contact if: you have any medication questions and your symptoms worsen Follow-up/Referrals: Paz Younger DO [Physician] - 05/12/21 (On saturday 05/12 as scheduled) Albin Cano DO [Surgeon] - Sayda Perkins DO [Primary Care Provider] - Diet: Regular Addtl Attending Provider Instructions: 1. Take all medications as directed. 2. Note changes in medications as noted on med reconciliation: Gabapentin 300mg three times daily and added [place] and Baclofen. 3. Follow up with Dr. Younger on Saturday 05/12 as scheduled. Pending Studies at Discharge: No Stand-Alone Forms: My [employer], Opioid Pain Management, Smoking Cessation Medications and DC Order Prescriptions: New baclofen 10 mg Tablet 10 mg PO BID PRN (Reason: muscle spasm) Qty: 30 RF: 0 lidocaine 5 % Adhesive Patch,Medicated 1 patch transdermal QAM Qty: 30 RF: 0 gabapentin 300 mg Capsule 300 mg PO TID Qty: 90 RF: 0 hydrocodone-acetaminophen 5-325 mg tablet 1 tab PO Q4H PRN (Reason: breakthrough pain) Qty: 15 RF: 0 Continued phentermine 15 mg capsule 15 mg PO DAILY Qty: 30 RF: 0 levonorgestrel 20 mcg/24 hours (5 yrs) 52 mg intrauterine device 1 insert IU CONT RF: 0 lisinopril 10 mg tablet 10 mg PO DAILY RF: 0 Discharge Orders: Discharge Order (Routine); Ordered 05/10/21 Ordered By: Danyell Vance/Other Patient Handouts: Relieving Back Pain, Understanding Lumbar Radiculopathy Admission Data Admit Date/Time: 05/08/21 21:42 Attending Provider: Gio Zimmer Admit Provider: Duane Singh Primary Care Provider: Sayda Perkins Other Providers: Natalie Tovar ; Albin Cano ; Cuong Santamaria Other Interventions: Discharge Summary Assessment (RN) Last Done: 05/10/21 14:38 Supervising Physician Co-Signing Physician Notes Patient seen and examined on the day of discharge. I agree with the discharge summary by Danyell VO. I have reviewed the chart including labs, imaging and plans for discharge. patient says her pain is better, but she is not too optimistic it will last. she will follow up closely with pain management and will arrange follow up with Dr. Cano she is eating well, breathing well, no fever, no chest pain - Intractable pain due to lumbar disc herniation: s/p epidural injection, significant pain relief discharge to home, lifting and bending restrictions, follow up with pain management and Dr. Cano Coding Level of Care Code 78758 OBS Care - Discharge Diagnoses Lumbar disc herniation with radiculopathy M51.16 Hypertension I10
== END 2021-05-10 15:07 | disposition home or self-care (01) ==
LOC: ED 17:43 → 3E 17:43 → SUATTDRO 21:42 → 3E 22:31
DX: Z20.822 Contact with and (suspected) exposure to COVID-19; M51.16 Intervertebral disc disorders with radiculopathy, lumbar region; I10 Essential (primary) hypertension; Z79.899 Other long term (current) drug therapy

== ENCOUNTER 2021-05-14 13:41 | Observation (INO) ==
[2021-05-14] MEDS ORDERED: dexAMETHasone**PF** 10 MG/ML VIAL IV ONE (17:16)
--- NOTE | 2021-05-14 17:26 | Emergency Department Note ---
History of Present Illness General Chief complaint: Leg Injury/Pain Stated complaint: L LEG AND HIP PAIN, WEAKNESS, AND NUMBNESS Time Seen by Provider: 05/14/21 17:04 History of Present Illness Maximum Pain Intensity: 4 This 45-year-old female patient with significant past medical history of lumbar disc herniation with radiculopathy, presents to the emergency department today for evaluation of progressive left lower extremity weakness and unsteadiness on her feet. The patient was seen here in the emergency department last week where she had extensive imaging completed which was concerning for herniated nucleus pulposus L3-L4 on the left with caudal migration and a fragment along the medial aspect of the L4 pedicle with significant displacement traversing the nerve route. Pt. did undergo lumbar epidural injection on 05/09/2021 by pain management. She was discharged home on gabapentin and has been titrating her dose up. She has also been taking [place] which does not help and intermittent Baclofen. She has been using Lidocaine patches, but did not apply one today. Pt. followed up with pain management on Wednesday and was advised to return to the ED for worsening symptoms. Since that time, she has noticed progressive weakness of the LLE, decreased sensation from her knee to her foot, and feeling more unstable while ambulating. Pt. denies loss of control of bowel or bladder. She denies any abdominal pain. No saddle anesthesia. No fever or recent illness. Patient has not contacted Dr. Cano as an outpatient regarding her increase in symptoms. She rates her current pain in the left lower extremity /10 and describes it as shooting and "electrical". Home Medications Medication Instructions Recorded Confirmed Type levonorgestrel 20 mcg/24 hours (7 1 insert IU CONT 08/21/19 05/14/21 History yrs) 52 mg intrauterine device (Mirena) lisinopril 10 mg tablet 10 mg PO DAILY 12/01/19 05/14/21 History baclofen 10 mg tablet 10 mg PO BID PRN #30 tab 05/10/21 05/14/21 Rx hydrocodone 5 mg-acetaminophen 325 1 tab PO Q4H PRN #15 tab 05/10/21 05/14/21 Rx mg tablet lidocaine 5 % topical patch 1 patch TRANSDERMAL QAM #30 ea 05/10/21 05/14/21 Rx cholecalciferol (vitamin D3) 25 25 mcg PO DAILY 05/14/21 05/14/21 History mcg (1,000 unit) tablet (Vitamin D3) cyanocobalamin (vitamin B-12) 1,000 mcg PO DAILY 05/14/21 05/14/21 History 1,000 mcg tablet (Vitamin B-12) gabapentin 300 mg capsule 300 mg PO BID 05/14/21 05/14/21 History gabapentin 300 mg capsule 600 mg PO HS 05/14/21 05/14/21 History phentermine 15 mg capsule 15 mg PO DAILY PRN 05/14/21 05/14/21 History Allergies Allergy/AdvReac Type Severity Reaction Status Date / Time No Known Allergies Allergy Unknown Verified 05/14/21 18:20 Past Med/Surg History Medical History Arthritis Cyst of left ovary Hypertension Lumbar disc herniation with radiculopathy Left L3-4 disc extrusion with caudal migration and possible free fragment Lumbar stenosis with neurogenic claudication (06/14/14) Radicular pain of right lower extremity Uterine enlargement Surgical History H/O breast biopsy [facility] H/O oral surgery tooth extraction History of ankle surgery History of back surgery Right L4-5 microdiscectomy in 2015 History of right salpingo-oophorectomy Hx of tonsillectomy Family History Grandmother (Maternal) Heart disease Hypertension Grandfather (Paternal) Stroke Hypertension Grandmother (Paternal) Hypertension Liver cancer Grandfather (Maternal) Hypertension Mother Hypertension Denies family history of Ovarian cancer Breast cancer Colorectal cancer Social History Smoking Status: Never smoker Second Hand Exposure: No; Hx Alcohol Use: Yes Alcohol type: wine Hx Substance Use: No Preferred Language: Venezuelan Communication Ability: Effective Transcription Required: No Beliefs That Will Affect Care: None marital status: Current Living Situation: Family Feels Safe at Home: Yes Assistive Devices: None Review of Systems A total of 10 systems reviewed and were otherwise negative Physical Exam Vital Signs Vital Signs - 24 hr 05/14/21 13:57 05/14/21 17:55 05/14/21 20:53 Temperature 36.8 C 37.1 C 36.8 C Temperature Source Temporal Artery Scan Oral Oral Pulse Rate 59 L Pulse Rate [Finger] 52 L 74 Pulse Rhythm [Finger] Regular Respiratory Rate 18 18 18 Blood Pressure 175/92 H Blood Pressure [Right Arm] 168/97 H 154/87 H Blood Pressure Mean 119 Blood Pressure Mean [Right Arm] 120 109 Pulse Oximetry 96 96 95 Oxygen Delivery Method Room Air Room Air Room Air Sepsis Recent Fever Within 48 Hours No Sepsis New/Unexplained Change in Mental Status N/A Sepsis Action Taken by Nursing No Action Required 05/14/21 22:00 Temperature 37.1 C Temperature Source Oral Pulse Rate Pulse Rate [Finger] 60 Pulse Rhythm [Finger] Respiratory Rate 16 Blood Pressure Blood Pressure [Right Arm] 148/80 H Blood Pressure Mean Blood Pressure Mean [Right Arm] 102 Pulse Oximetry 96 Oxygen Delivery Method Sepsis Recent Fever Within 48 Hours Sepsis New/Unexplained Change in Mental Status Sepsis Action Taken by Nursing VITALS: Vitals are noted on the nurse's note and reviewed by myself. Vital signs stable. GENERAL: This is a 45-year-old white female, in no acute distress, nondiaphoretic, well-developed well-nourished. SKIN: The skin was without rashes, erythema, edema, or bruising. There is no tenting of the skin. Capillary refill less than 2 seconds. HEAD: Normocephalic atraumatic. EYES: Conjunctivae without injection, sclerae without icterus. NECK: Supple without nuchal rigidity. No lymphadenopathy. Cervical spine is nontender. No JVD. HEART: Regular rate and rhythm without murmurs gallops or rubs. LUNGS: Clear to auscultation bilaterally without wheezes, rales or rhonchi. No retractions or accessory muscle use. ABDOMEN: Positive bowel sounds x 4. Soft, nontender, without masses or organomegaly. Gutierrez sign negative. No guarding or rebound tenderness. MUSCULOSKELETAL: No muscle atrophy, erythema, or edema noted. Full range of motion in all extremities. No tenderness to palpation. Limping gait. Strength of the left lower extremity 4/5. Otherwise strength 5/5 throughout. NEURO: Patient was alert and oriented to person place and time. Normal sensation to light and sharp touch. Deep tendon reflexes 2+ throughout. No focal neurological deficits. Course Course The patient was seen and evaluated as above. Previous medical records reviewed. IV access obtained, labs drawn. I consulted with Dr. Cano, orthopedic engineering specialist technician who did see the patient in consult during her previous admission. He requested the patient be admitted to the medicine service and he will perform laminectomy either tomorrow or Wednesday, depending on the OR schedule. He recommended narcotics as needed for pain and requested the patient be given no further steroids until after the procedure. He will see the patient likely tomorrow. Labs reviewed by myself. I discussed the findings and recommendation with the patient at bedside. I discussed the case with my attending. I discussed the case with Dr. Lockwood. He did request that I change the admi ssion order to Dr. Grigsby. Please see [facility] dictation regarding ongoing management and care of this patient. Administered Medications Discontinued Medications Dexamethasone Sodium Phosphate (DexamethasonePf 10 Mg/Ml Vial) 10 mg IV NOW ONE Stop: 05/14/21 17:17 Last Admin: 05/14/21 17:50 Dose: 10 mg Documented by: [id number] Medical Decision Making Differential Diagnosis Musculoskeletal, disc herniation, fracture, metastatic disease, cord compression, discitis, sciatica, cauda equina, infection, aortic disease, renal colic, gastrointestinal, as well as other pathologies. Medical Records Attestation: I reviewed the patient's medical records. Home Medications Current Medication List: was personally reviewed by me Laboratory Data Attestation: I reviewed the patient's lab results. Mild leukocytosis of 14,000. No anemia or thrombocytopenia. Renal, hepatic function electrolytes without significant abnormality. Urinalysis with trace bl ood and 1+ bacteria, but the patient does not have UTI symptoms. Will await culture. Result diagrams: 05/14/21 17:44 05/14/21 17:44 Lab Results 05/14/21 05/14/21 05/14/21 Range/Units 17:24 17:24 17:44 WBC 14.60 H (4.8-10.8) K/uL RBC 4.73 (4.2-5.4) M/uL Hgb 14.8 (12.0-16.0) g/dL Hct 42.8 (37-47) % MCV 90.5 (80-100) fL MCH 31.3 (25-34) pg MCHC 34.6 (32-36) g/dL RDW Std Deviation 42.5 (36.4-46.3) fL RDW Coeff of [place] 12.8 (11.5-14.5) % Plt Count 307 (130-400) K/uL MPV 11.1 H (7.4-10.4) fL Immature Gran % (Auto) 0.3 % Neut % (Auto) 70.1 % Lymph % (Auto) 18.5 % [place] % (Auto) 9.7 % Eos % (Auto) 1.1 % Baso % (Auto) 0.3 % Neut # (Auto) 10.23 H (1.4-6.5) K/uL Lymph # (Auto) 2.70 (1.2-3.4) K/uL [place] # (Auto) 1.42 H (0.11-0.59) K/uL Eos # (Auto) 0.16 (0-0.5) K/uL Baso # (Auto) 0.05 (0-0.2) K/uL Immature Gran # (Auto) 0.04 H (0.00-0.02) K/uL PT (9.0-12.0) Seconds INR (0.9-1.1) APTT (21.0-31.0) Seconds PTT Ratio Sodium (136-145) mmol/L Potassium (3.5-5.1) mmol/L Chloride (98-107) mmol/L Carbon Dioxide (21-32) mmol/L Anion Gap (3-11) BUN (7-18) mg/dl Creatinine (0.6-1.2) mg/dl Est Cr Clr Drug Dosing ml/min Est GFR ( Amer) ml/min Est GFR (Non-Af Amer) ml/min BUN/Creatinine Ratio (10-20) Glucose (70-99) mg/dl Calcium (8.5-10.1) mg/dl Total Bilirubin (0.2-1) mg/dl AST (15-37) U/L ALT (12-78) Alkaline Phosphatase (45-117) U/L Total Protein (6.4-8.2) gm/dl Albumin (3.4-5.0) gm/dl Globulin (2.5-4.0) gm/dl Albumin/Globulin Ratio (0.9-2) Urine Color Yellow Urine Appearance Clear (Clear) Urine pH 5.0 (4.5-7.5) Ur Specific [place] 1.017 (1.000-1.030) Urine Protein Negative (Negative) Urine Glucose (UA) Negative (Negative) Urine Ketones Negative (Negative) Urine Blood Trace H (Negative) Urine Nitrite Negative (Negative) Urine Bilirubin Negative (Negative) Urine Urobilinogen Negative (Negative) Ur Leukocyte Esterase Negative (Negative) Urine WBC (Auto) 1-5 (0-5) /hpf Urine RBC (Auto) 0-4 (0-4) /hpf U Hyaline Cast (Auto) 1-5 (0-5) /lpf U Epithel Cells (Auto) 10-20 H (0-5) /lpf Urine Bacteria (Auto) 1+ H (Negative) SARS-CoV-2, RNA, NAAT NEGATIVE (NEGATIVE) 05/14/21 05/14/21 Range/Units 17:44 21:16 WBC (4.8-10.8) K/uL RBC (4.2-5.4) M/uL Hgb (12.0-16.0) g/dL Hct (37-47) % MCV (80-100) fL MCH (25-34) pg MCHC (32-36) g/dL RDW Std Deviation (36.4-46.3) fL RDW Coeff of [place] (11.5-14.5) % Plt Count (130-400) K/uL MPV (7.4-10.4) fL Immature Gran % (Auto) % Neut % (Auto) % Lymph % (Auto) % [place] % (Auto) % Eos % (Auto) % Baso % (Auto) % Neut # (Auto) (1.4-6.5) K/uL Lymph # (Auto) (1.2-3.4) K/uL [place] # (Auto) (0.11-0.59) K/uL Eos # (Auto) (0-0.5) K/uL Baso # (Auto) (0-0.2) K/uL Immature Gran # (Auto) (0.00-0.02) K/uL PT 10.3 (9.0-12.0) Seconds INR 1.0 (0.9-1.1) APTT 27.2 (21.0-31.0) Seconds PTT Ratio 1.0 Sodium 138 (136-145) mmol/L Potassium 3.7 (3.5-5.1) mmol/L Chloride 107 (98-107) mmol/L Carbon Dioxide 26 (21-32) mmol/L Anion Gap 5.0 (3-11) BUN 18 (7-18) mg/dl Creatinine 0.69 (0.6-1.2) mg/dl Est Cr Clr Drug Dosing 131.9 ml/min Est GFR ( Amer) 122.7 ml/min Est GFR (Non-Af Amer) 105.9 ml/min BUN/Creatinine Ratio 25.8 H (10-20) Glucose 88 (70-99) mg/dl Calcium 9.6 (8.5-10.1) mg/dl Total Bilirubin 1.3 H (0.2-1) mg/dl AST 7 L (15-37) U/L ALT 25 (12-78) Alkaline Phosphatase 54 (45-117) U/L Total Protein 7.9 (6.4-8.2) gm/dl Albumin 3.9 (3.4-5.0) gm/dl Globulin 4.0 (2.5-4.0) gm/dl Albumin/Globulin Ratio 1.0 (0.9-2) Urine Color Urine Appearance (Clear) Urine pH (4.5-7.5) Ur Specific [place] (1.000-1.030) Urine Protein (Negative) Urine Glucose (UA) (Negative) Urine Ketones (Negative) Urine Blood (Negative) Urine Nitrite (Negative) Urine Bilirubin (Negative) Urine Urobilinogen (Negative) Ur Leukocyte Esterase (Negative) Urine WBC (Auto) (0-5) /hpf Urine RBC (Auto) (0-4) /hpf U Hyaline Cast (Auto) (0-5) /lpf U Epithel Cells (Auto) (0-5) /lpf Urine Bacteria (Auto) (Negative) SARS-CoV-2, RNA, NAAT (NEGATIVE) Blood Pressure Blood Pressure Findings: Normal blood pressure MDM Narrative This 45-year-old female patient presents to the emergency department today for evaluation of progressive symptoms in relation to lumbar disc herniation. The patient is having progressive paresthesias in the left lower extremity and complaints of weakness and increasing unsteadiness with ambulation despite lumbar epidural injection performed several days ago. I did consult with the orthopedic engineering specialist technician on-call. He did recommend the patient be admitted and will likely perform laminectomy within the next 2 days. The patient will be admitted to the [facility] hospitalist service. She was medicated with Decadron while in the emergency department. Please see hospitalist dictation regarding ongoing management care of this patient. The chart was completed utilizing mSpot Speech voice recognition software. Grammatical errors, random word insertions, pronoun errors, and incomplete sentences are an occasional consequence of this system due to software limitations, ambient noise, and hardware issues. Any formal questions or concerns about the content, text, or information contained within the body of this dictation should be directly addressed to the provider for clarification. Impression & Plan Lumbar disc herniation with radiculopathy, Weakness of left lower extremity Discharge Plan Visit Data Chief Complaint: Leg Injury/Pain Stated Complaint: L LEG AND HIP PAIN, WEAKNESS, AND NUMBNESS ED Provider: Sudhakar Silva ED Midlevel Provider: Luann Lloyd Patient Disposition: Admitted As Inpatient Prescriptions Prescriptions: No Action Mirena 20 mcg/24 hours (5 yrs) 52 mg intrauterine device 1 insert IU CONT RF: 0 lisinopril 10 mg tablet 10 mg PO DAILY RF: 0 baclofen 10 mg Tablet 10 mg PO BID PRN (Reason: muscle spasm) Qty: 30 RF: 0 lidocaine 5 % Adhesive Patch,Medicated 1 patch transdermal QAM Qty: 30 RF: 0 hydrocodone-acetaminophen 5-325 mg tablet 1 tab PO Q4H PRN (Reason: breakthrough pain) Qty: 15 RF: 0 cyanocobalamin (vitamin B-12) [Vitamin B-12] 1,000 mcg Tablet 1,000 mcg PO DAILY RF: 0 gabapentin 300 mg capsule 600 mg PO HS RF: 0 cholecalciferol (vitamin D3) [Vitamin D3] 25 mcg (1,000 unit) Tablet 25 mcg PO DAILY RF: 0 phentermine 15 mg capsule 15 mg PO DAILY PRN (Reason: Unknown) RF: 0 gabapentin 300 mg capsule 300 mg PO BID RF: 0
[2021-05-14 17:54] LABS: Basophils # (auto) 0.05 K/uL (0-0.2); Basophils % (auto) 0.3 %; Eosinophils # (auto) 0.16 K/uL (0-0.5); Eosinophils % (auto) 1.1 %; Hematocrit (blood only) 42.8 % (37-47); Hemoglobin 14.8 g/dL (12.0-16.0); Immature Granulocytes # (auto) 0.04 K/uL (0.00-0.02); Immature Granulocytes % (auto) 0.3 %; Lymphocytes % (auto) 18.5 %; Mean Corpuscular Hemoglobin 31.3 pg (25-34); Mean Corpuscular Hgb Conc 34.6 g/dL (32-36); Mean Corpuscular Volume 90.5 fL (80-100); Mean Platelet Volume 11.1 fL (7.4-10.4); Monocytes # (auto) 1.42 K/uL (0.11-0.59); Monocytes % (auto) 9.7 %; Neutrophils # (auto) 10.23 K/uL (1.4-6.5); Neutrophils % (auto) 70.1 %; Platelet Count 307 K/uL (130-400); RDW Coefficient of Variation 12.8 % (11.5-14.5); RDW Standard Deviation 42.5 fL (36.4-46.3); Red Blood Count 4.73 M/uL (4.2-5.4)
[2021-05-14 18:02] LABS: Appearance Urine Clear (Clear); Bacteria Urine Automated 1+ (Negative); Bilirubin Urine Negative (Negative); Blood Urine Trace (Negative); Color Urine Yellow; Glucose Urine UA Negative (Negative); Ketones Urine Negative (Negative); Leukocyte Esterase Urine Negative (Negative); Nitrite Urine Negative (Negative); Protein Urine Negative (Negative); RBC Urine Automated 0-4 /hpf (0-4); Specific Gravity Urine 1.017 (1.000-1.030); Urobilinogen Urine Negative (Negative)
[2021-05-14 18:17] LABS: Albumin Level 3.9 gm/dl (3.4-5.0); BUN Creatinine Ratio 25.8 (10-20); Calcium 9.6 mg/dl (8.5-10.1); Creatinine Clr Calc Pharmacy 131.9 ml/min; Est GFR (African American) 122.7 ml/min; Est GFR (Non-African American) 105.9 ml/min; Potassium 3.7 mmol/L (3.5-5.1)
[2021-05-14 18:19] LABS: Bilirubin,Total 1.3 mg/dl (0.2-1); Total Protein 7.9 gm/dl (6.4-8.2)
--- NOTE | 2021-05-14 21:01 | History & Physical Report ---
Date of Service May 14, 2021 Assessment & Plan (1) Lumbar disc herniation with radiculopathy: Plan: Given dexamethasone 10 mg IV by the ED Continue dexamethasone 4 mg IV every 8 hours Continue baclofen, gabapentin, [place] as outpatient Consult pain management Dr. Younger Consult orthopedic surgery Dr. Cano (2) Hypertension: Plan: Continue lisinopril History of Present Illness Chief Complaint: The patient presents to the emergency department with complaint of development of left thigh weakness and difficulty with ambulation Primary Care Provider: Sayda Perkins DO The patient is a 45-year-old female with a past medical history including vitamin D insufficiency, metabolic syndrome, uterine enlargement, hypertension, lumbar stenosis with neurogenic claudicatio, and lumbar disc herniation with left lower extremity radiculopathy. The patient had recently been admitted to the hospital from 05/08-05/09, when she had been seen by pain management consult Dr. Paz Younger, an orthopedic surgeon consult Dr. Albin Cano, and un derwent a left L3-4 transforaminal epidural steroid injection. She presented to the emergency department this evening due to the new development of left leg weakness. Allergies Allergy/AdvReac Type Severity Reaction Status Date / Time No Known Allergies Allergy Unknown Verified 05/14/21 18:20 Home Medications Medication Instructions Recorded Confirmed Type levonorgestrel 20 mcg/24 hours (7 1 insert IU CONT 08/21/19 05/14/21 History yrs) 52 mg intrauterine device (Mirena) lisinopril 10 mg tablet 10 mg PO DAILY 12/01/19 05/14/21 History baclofen 10 mg tablet 10 mg PO BID PRN #30 tab 05/10/21 05/14/21 Rx hydrocodone 5 mg-acetaminophen 325 1 tab PO Q4H PRN #15 tab 05/10/21 05/14/21 Rx mg tablet lidocaine 5 % topical patch 1 patch TRANSDERMAL QAM #30 ea 05/10/21 05/14/21 Rx cholecalciferol (vitamin D3) 25 25 mcg PO DAILY 05/14/21 05/14/21 History mcg (1,000 unit) tablet (Vitamin D3) cyanocobalamin (vitamin B-12) 1,000 mcg PO DAILY 05/14/21 05/14/21 History 1,000 mcg tablet (Vitamin B-12) gabapentin 300 mg capsule 300 mg PO BID 05/14/21 05/14/21 History gabapentin 300 mg capsule 600 mg PO HS 05/14/21 05/14/21 History phentermine 15 mg capsule 15 mg PO DAILY PRN 05/14/21 05/14/21 History Past Med/Surg History Medical History Arthritis Cyst of left ovary Hypertension Lumbar disc herniation with radiculopathy Left L3-4 disc extrusion with caudal migration and possible free fragment Lumbar stenosis with neurogenic claudication (06/14/14) Radicular pain of right lower extremity Uterine enlargement Surgical History H/O breast biopsy [facility] H/O oral surgery tooth extraction History of ankle surgery History of back surgery Right L4-5 microdiscectomy in 2014 History of right salpingo-oophorectomy Hx of tonsillectomy Family History Grandmother (Maternal) Heart disease Hypertension Grandfather (Paternal) Stroke Hypertension Grandmother (Paternal) Hypertension Liver cancer Grandfather (Maternal) Hypertension Mother Hypertension Denies family history of Ovarian cancer Breast cancer Colorectal cancer Social History Smoking Status: Never smoker Second Hand Exposure: No; Do You Dip or Chew Tobacco: No; Tobacco Cessation Education Requested by Patient: No Hx Alcohol Use: Yes Alcohol type: wine Hx Substance Use: No Preferred Language: Albanian Communication Ability: Effective Parts Facilitator Required: No Beliefs That Will Affect Care: None marital status: Current Living Situation: Family Other Information That Helps Us Care for You: No Feels Safe at Home: Yes Safety Concerns: Feels Safe At This Time Assistive Devices: None Review of Systems Review of Systems: The patient denies chest pain, palpitations, shortness of breath, dyspnea on exertion, cough, lower extremity swelling, sore throat, fevers, chills, sweats, weight change, fatigue, nausea, vomiting, diarrhea , constipation, abdominal pain, pelvic pain, blood in urine or stool, dysuria, urinary frequency or urgency, lightheadedness, dizziness, headache, loss of consciousness, focal or generalized weakness, numbness or tingling in arms or right leg, generalized arthralgias or myalgias, neck pain, or night sweats. The review of systems is otherwise negative other than for that already noted above, and at least 10 systems have been reviewed. Physical Exam Physical Exam: The patient is awake, alert and oriented 3, well developed and well nourished, normocephalic and atraumatic, lying in bed and in no acute distress. HEENT--PERRL, EOMI, mucous membranes and oropharynx dry. Neck--supple. No JVD. No bruits. Thyroid normal, trachea midline, no adenopathy. Heart--normal S1 and S2. No murmurs, rubs or gallops. Lungs--clear bilaterally, no respiratory distress, no accessory muscle use. Abdomen--normal bowel sounds and soft. Nontender. Nondistended. Obese. Extremities--no cyanosis or clubbing. No edema. Dermatologic--normal skin turgor, normal color, no rash. Neurologic--cranial nerves II through XII grossly intact. Rheumatologic--normal range of motion. No apparent decrease in strength noted Psychiatric--normal affect. Results & Data Results & Data ([facility]) Vital Signs (Past 12 Hours) Vital Signs Temp Pulse Pulse Resp BP BP Pulse Ox 05/14/21 20:53 36.8 C 74 18 154/87 H 95 05/14/21 17:55 37.1 C 52 L 18 168/97 H 96 05/14/21 13:57 36.8 C 59 L 18 175/92 H 96 Laboratory Results Laboratory Results WBC 14.60 K/uL (4.8-10.8) H 05/14/21 17:44 RBC 4.73 M/uL (4.2-5.4) 05/14/21 17:44 Hgb 14.8 g/dL (12.0-16.0) 05/14/21 17:44 Hct 42.8 % (37-47) 05/14/21 17:44 MCV 90.5 fL (80-100) 05/14/21 17:44 MCH 31.3 pg (25-34) 05/14/21 17:44 MCHC 34.6 g/dL (32-36) 05/14/21 17:44 RDW Std Deviation 42.5 fL (36.4-46.3) 05/14/21 17:44 RDW Coeff of [place] 12.8 % (11.5-14.5) 05/14/21 17:44 Plt Count 307 K/uL (130-400) 05/14/21 17:44 MPV 11.1 fL (7.4-10.4) H 05/14/21 17:44 Immature Gran % (Auto) 0.3 % 05/14/21 17:44 Neut % (Auto) 70.1 % 05/14/21 17:44 Lymph % (Auto) 18.5 % 05/14/21 17:44 [place] % (Auto) 9.7 % 05/14/21 17:44 Eos % (Auto) 1.1 % 05/14/21 17:44 Baso % (Auto) 0.3 % 05/14/21 17:44 Neut # (Auto) 10.23 K/uL (1.4-6.5) H 05/14/21 17:44 Lymph # (Auto) 2.70 K/uL (1.2-3.4) 05/14/21 17:44 [place] # (Auto) 1.42 K/uL (0.11-0.59) H 05/14/21 17:44 Eos # (Auto) 0.16 K/uL (0-0.5) 05/14/21 17:44 Baso # (Auto) 0.05 K/uL (0-0.2) 05/14/21 17:44 Immature Gran # (Auto) 0.04 K/uL (0.00-0.02) H 05/14/21 17:44 PT 10.3 Seconds (9.0-12.0) 05/14/21 21:16 INR 1.0 (0.9-1.1) 05/14/21 21:16 APTT 27.2 Seconds (21.0-31.0) 05/14/21 21:16 PTT Ratio 1.0 05/14/21 21:16 Sodium 138 mmol/L (136-145) 05/14/21 17:44 Potassium 3.7 mmol/L (3.5-5.1) 05/14/21 17:44 Chloride 107 mmol/L (98-107) 05/14/21 17:44 Carbon Dioxide 26 mmol/L (21-32) 05/14/21 17:44 Anion Gap 5.0 (3-11) 05/14/21 17:44 BUN 18 mg/dl (7-18) 05/14/21 17:44 Creatinine 0.69 mg/dl (0.6-1.2) 05/14/21 17:44 Est Cr Clr Drug Dosing 131.9 ml/min 05/14/21 17:44 Est GFR ( Amer) 122.7 ml/min 05/14/21 17:44 Est GFR (Non-Af Amer) 105.9 ml/min 05/14/21 17:44 BUN/Creatinine Ratio 25.8 (10-20) H 05/14/21 17:44 Glucose 88 mg/dl (70-99) 05/14/21 17:44 Calcium 9.6 mg/dl (8.5-10.1) 05/14/21 17:44 Total Bilirubin 1.3 mg/dl (0.2-1) H 05/14/21 17:44 AST 7 U/L (15-37) L 05/14/21 17:44 ALT 25 (12-78) 05/14/21 17:44 Alkaline Phosphatase 54 U/L (45-117) 05/14/21 17:44 Total Protein 7.9 gm/dl (6.4-8.2) 05/14/21 17:44 Albumin 3.9 gm/dl (3.4-5.0) 05/14/21 17:44 Globulin 4.0 gm/dl (2.5-4.0) 05/14/21 17:44 Albumin/Globulin Ratio 1.0 (0.9-2) 05/14/21 17:44 Urine Color Yellow 05/14/21 17:24 Urine Appearance Clear (Clear) 05/14/21 17:24 Urine pH 5.0 (4.5-7.5) 05/14/21 17:24 Ur Specific [place] 1.017 (1.000-1.030) 05/14/21 17:24 Urine Protein Negative (Negative) 05/14/21 17:24 Urine Glucose (UA) Negative (Negative) 05/14/21 17:24 Urine Ketones Negative (Negative) 05/14/21 17:24 Urine Blood Trace (Negative) H 05/14/21 17:24 Urine Nitrite Negative (Negative) 05/14/21 17:24 Urine Bilirubin Negative (Negative) 05/14/21 17:24 Urine Urobilinogen Negative (Negative) 05/14/21 17:24 Ur Leukocyte Esterase Negative (Negative) 05/14/21 17:24 Urine WBC (Auto) 1-5 /hpf (0-5) 05/14/21 17:24 Urine RBC (Auto) 0-4 /hpf (0-4) 05/14/21 17:24 U Hyaline Cast (Auto) 1-5 /lpf (0-5) 05/14/21 17:24 U Epithel Cells (Auto) 10-20 /lpf (0-5) H 05/14/21 17:24 Urine Bacteria (Auto) 1+ (Negative) H 05/14/21 17:24 SARS-CoV-2, RNA, NAAT NEGATIVE (NEGATIVE) 05/14/21 17:24 Code Status & VTE Plan Code Status Full code VTE Prophylaxis Plan VTE Prophylaxis will be ordered: Yes PG Care Time/CCT Total # of Minutes Spent Total Time Spent with Patient: Total time spent is greater than 50% in coordination of care (as documented) at patient's floor/unit and/or counseling patient: Coding Level of Care Code INT OBSERVATION CARE 70M LVL 3 Diagnoses Lumbar disc herniation with radiculopathy M51.16 Hypertension I10
[2021-05-14 21:51] LABS: Partial Thromboplastin Time 27.2 Seconds (21.0-31.0); Prothrombin Time 10.3 Seconds (9.0-12.0)
[2021-05-14] MEDS ORDERED: HYDROCODONE/ACETAMOPHEN 5/325MG TAB PO PRN ×2 (23:49)
[2021-05-14] MEDS ORDERED: ACETAMINOPHEN 325 MG TAB PO PRN (23:49)
[2021-05-14] MEDS ORDERED: LACTATED RINGER'S 1,000 ML IV SCH (23:49)
[2021-05-14] MEDS ORDERED: BACLOFEN 10 MG TAB PO PRN (23:49)
[2021-05-14] MEDS ORDERED: ONDANSETRON INJ 2 MG/ML 2 ML VIAL IV PRN (23:49)
[2021-05-15] MEDS: GABAPENTIN 300 MG CAP PO SCH ×4 (00:17→21:52)
[2021-05-15] MEDS: dexAMETHasone 4 MG in SYRINGE 0 ML IV SCH ×3 (02:10→19:42)
[2021-05-15] MEDS: CHOLECALCIFEROL 1,000 UNITS 25 MCG TAB PO SCH (07:53)
[2021-05-15] MEDS: CYANOCOBALAMIN 500 MCG TABLET (VITAMIN B-12) PO SCH (07:53)
[2021-05-15] MEDS: lisinopril 10 MG TAB PO SCH (07:54)
[2021-05-15] MEDS: LIDOCAINE 5% 1 PATCH TD SCH (07:56)
--- NOTE | 2021-05-15 08:19 | Pain Management Consultation ---
Date of Consultation May 15, 2021 Assessment & Plan (1) Lumbar disc herniation with radiculopathy: Patient did not receive any pain relief from the left L3-4 transforaminal epidural steroid injection that was performed on 05/09/21. She is ready to consider surgical treatment. She will speak to Dr. Cano today. For now continue current medication regimen. History of Present Illness Reason for Consultation: Intractable pain and left leg weakness Attending Physician: Aníbal Mejía MD History of Present Illness Mrs. Bergman is a 45 year old female with lumbar radiculopathy. There is a know large left disc extrusion at L3-4. A left L3-4 transforaminal epidural steroid injection was performed on 05/09/[address] Younger. The epidural injection has not yet been effective. The pain in the left leg has been worse and she has now developed weakness. There is no back pain. She describes "zinger" shooting down the left leg. She has been taking Baclofen, Gabapentin, and Hydrocodone. No bowel/bladder incontinence, saddle anesthesia, foot drop, or falls. Pain Assessment Full Body Front + Back: 1. Allergies Allergy/AdvReac Type Severity Reaction Status Date / Time No Known Allergies Allergy Unknown Verified 05/14/21 18:20 Home Medications Medication Instructions Recorded Confirmed Type levonorgestrel 20 mcg/24 hours (7 1 insert IU CONT 08/21/19 05/14/21 History yrs) 52 mg intrauterine device (Mirena) lisinopril 10 mg tablet 10 mg PO DAILY 12/01/19 05/14/21 History baclofen 10 mg tablet 10 mg PO BID PRN #30 tab 05/10/21 05/14/21 Rx hydrocodone 5 mg-acetaminophen 325 1 tab PO Q4H PRN #15 tab 05/10/21 05/14/21 Rx mg tablet lidocaine 5 % topical patch 1 patch TRANSDERMAL QAM #30 ea 05/10/21 05/14/21 Rx cholecalciferol (vitamin D3) 25 25 mcg PO DAILY 05/14/21 05/14/21 History mcg (1,000 unit) tablet (Vitamin D3) cyanocobalamin (vitamin B-12) 1,000 mcg PO DAILY 05/14/21 05/14/21 History 1,000 mcg tablet (Vitamin B-12) gabapentin 300 mg capsule 300 mg PO BID 05/14/21 05/14/21 History gabapentin 300 mg capsule 600 mg PO HS 05/14/21 05/14/21 History phentermine 15 mg capsule 15 mg PO DAILY PRN 05/14/21 05/14/21 History Patient History Medical History Arthritis Cyst of left ovary Hypertension Lumbar disc herniation with radiculopathy Left L3-4 disc extrusion with caudal migration and possible free fragment Lumbar stenosis with neurogenic claudication (06/14/14) Radicular pain of right lower extremity Uterine enlargement Surgical History H/O breast biopsy [facility] H/O oral surgery tooth extraction History of ankle surgery History of back surgery Right L4-5 microdiscectomy in 2014 History of right salpingo-oophorectomy Hx of tonsillectomy Family History Grandmother (Maternal) Heart disease Hypertension Grandfather (Paternal) Stroke Hypertension Grandmother (Paternal) Hypertension Liver cancer Grandfather (Maternal) Hypertension Mother Hypertension Denies family history of Ovarian cancer Breast cancer Colorectal cancer Social History Smoking Status: Never smoker Second Hand Exposure: No; Do You Dip or Chew Tobacco: No; Tobacco Cessation Education Requested by Patient: No Hx Alcohol Use: Yes Alcohol type: wine Hx Substance Use: No Preferred Language: Cameroonian Communication Ability: Effective Strap Buckler Machine Required: No Beliefs That Will Affect Care: None marital status: Current Living Situation: Family Other Information That Helps Us Care for You: No Feels Safe at Home: Yes Safety Concerns: Feels Safe At This Time Assistive Devices: None Physical Exam Physical Exam: GENERAL: This is a 45 year old female. In no acute distress. HEAD/FACE: Normocephalic and atraumatic. EYES: No drainage or conjunctival injection. ENT: Wearing mask appropriately. NECK: Full ROM without apparent pain. No swelling or masses noted. RESPIRATORY: Patient with unlabored breathing. No signs of respiratory distress. CHEST/AXILLA: Chest movement symmetrical. No deformities noted. ABDOMEN/GI: No distension BACK: Moves without difficulty. No tenderness. SKIN: [place], warm and dry. No rash noted. MS/EXTREMITY: 4/5 strength of the left leg, 5/5 on the right. NEURO: Alert and appears oriented. Speech is fluent. Cranial Nerves are grossly intact. PSYCH: Alert, pleasant, affect is calm Results (Pain Clinic) Diagnostic Review MRI Findings: MR lumbar spine wo con CLINICAL HISTORY: 45 years-old Female with lower back pain into L hip/leg with paresthesias. Acute low back pain with radiation into the left lower extremity COMPARISON: MRI lumbar spine 08/03/2014 TECHNIQUE: Multiplanar, multi sequence MRI of the lumbar spine was performed without intravenous contrast. FINDINGS: Conus medullaris terminates at T12-L1. Signal within the imaged thoracic spinal cord and cauda equina is unremarkable. No acute fracture, subluxation, endplate erosion or significant bone marrow edema. Petroleum Inspector Supervisor localizer images demonstrate cystic foci of the left ovary which are partially imaged. T12-L1: No central canal or neural foraminal stenosis. L1-L2: No central canal or neural foraminal stenosis. L2-L3: No central canal or neural foraminal stenosis. L3-L4: Mild intervertebral disc space narrowing with disc desiccation and minim al spondylitic spurring. Posterior annular disc bulge with annular fissure. There is a large left paracentral/left lateral recess disc extrusion which measures 1.3 x 0.6 x 1.6 cm in transverse, AP and craniocaudal dimensions (image 17 series 6 image 10 series 3). There is moderate central canal stenosis with severe narrowing of the left lateral recess. This abuts and displaces the transiting left L4 nerve root. These findings are new from prior. The neural foramina are generally patent. L4-L5: Mild intervertebral disc space narrowing with disc desiccation. Coarse flex device is noted within the interspinous location at L4-L5. The previously noted large disc protrusion at this level is no longer present. Right hemilaminectomy changes. The central canal and neural foramina appear generally patent. L5-S1: Mild to moderate decubitus space narrowing with mild spondylitic spurring and small posterior disc osteophyte complex with mild facet arthrosis. Decreased size of the previously noted tiny central disc protrusion. Central canal is patent. Mild bilateral neural foraminal narrowing. IMPRESSION: 1. Large left paracentral/left lateral recess L3-L4 disc extrusion results in moderate central canal stenosis with severe left lateral recess narrowing abutting and displacing the transiting left L4 nerve root. 2. Mild bilateral L5-S1 neural foraminal narrowing is new from prior. ACT 112: Negative or not required by law. The above report was generated using voice recognition software. It may contain grammatical, syntax or spelling errors. Electronically signed by: Serjio Cabrera M.D. 05/08/2021 7:43 PM
--- NOTE | 2021-05-15 08:26 | Anesthesiology Consultation ---
Date of Service May 15, 2021 Assessment & Plan (1) Encounter for pre-operative examination: Chart Review Chart Review: Acceptable Risk for Surgery and Patient NOT seen in Pre Admission Testing covid neg 05/14/21. Consults Requested none History Surgery Operation Date: 05/15/21 09:20 Proposed Procedures p Left L3-L4 Laminectomy - Albin Cano DO Height/Weight Height: 5 ft 7 in Weight: 108.5 kg Allergies Allergy/AdvReac Type Severity Reaction Status Date / Time No Known Allergies Allergy Unknown Verified 05/14/21 18:20 Medications Home Medications Medication Instructions Recorded Confirmed Last Taken levonorgestrel 20 mcg/24 hours (7 1 insert IU CONT 08/21/19 05/14/21 05/14/21 yrs) 52 mg intrauterine device (Mirena) lisinopril 10 mg tablet 10 mg PO DAILY 12/01/19 05/14/21 05/14/21 baclofen 10 mg tablet 10 mg PO BID PRN #30 tab 05/10/21 05/14/21 05/14/21 hydrocodone 5 mg-acetaminophen 325 1 tab PO Q4H PRN #15 tab 05/10/21 05/14/21 Unknown mg tablet lidocaine 5 % topical patch 1 patch TRANSDERMAL QAM #30 ea 05/10/21 05/14/21 05/14/21 cholecalciferol (vitamin D3) 25 25 mcg PO DAILY 05/14/21 05/14/21 05/14/21 mcg (1,000 unit) tablet (Vitamin D3) cyanocobalamin (vitamin B-12) 1,000 mcg PO DAILY 05/14/21 05/14/21 05/14/21 1,000 mcg tablet (Vitamin B-12) gabapentin 300 mg capsule 300 mg PO BID 05/14/21 05/14/21 05/14/21 gabapentin 300 mg capsule 600 mg PO HS 05/14/21 05/14/21 05/13/21 phentermine 15 mg capsule 15 mg PO DAILY PRN 05/14/21 05/14/21 Unknown Active Medications Generic Name Dose Route Start Last Admin Trade Name Freq PRN Reason Stop Dose Admin Cyanocobalamin 1,000 mcg 05/15/21 09:00 05/15/21 07:53 Cyanocobalamin 500 Mcg Tablet (Vitamin B-12) PO 06/14/21 08:59 1,000 mcg DAILY AYSE Administration Gabapentin 300 mg 05/15/21 09:00 05/15/21 07:53 Gabapentin 300 Mg Cap PO 06/14/21 08:59 300 mg BID@0900,1400 AYSE Administration Gabapentin 600 mg 05/14/21 23:49 05/15/21 00:17 Gabapentin 300 Mg Cap PO 06/13/21 23:48 600 mg HS AYSE Administration Dexamethasone 4 mg/ Syringe 1 mls @ 1 mls/min 05/15/21 02:00 05/15/21 02:10 IV 06/14/21 01:59 1 mls/min Q8H AYSE Administration Lactated Ringer's 1,000 mls @ 80 mls/hr 05/14/21 23:49 05/15/21 00:12 Lr IV 05/15/21 12:18 80 mls/hr .[id number] AYSE Administration Lidocaine 1 patch 05/15/21 09:00 05/15/21 07:56 Lidocaine 5% 1 Patch TD 06/14/21 08:59 1 patch QAM AYSE Administration Lisinopril 10 mg 05/15/21 09:00 05/15/21 07:54 Lisinopril 10 Mg Tab PO 06/14/21 08:59 10 mg DAILY AYSE Administration Vitamin D 1,000 units 05/15/21 09:00 05/15/21 07:53 Cholecalciferol 1,000 Units 25 Mcg Tab PO 06/14/21 08:59 1,000 units DAILY AYSE Administration Past Medical History Medical History (Updated 05/15/21 @ 08:26 by Rohan Torres MD) Arthritis Cyst of left ovary Encounter for pre-operative examination Hypertension Lumbar disc herniation with radiculopathy Left L3-4 disc extrusion with caudal migration and possible free fragment Lumbar stenosis with neurogenic claudication (06/14/14) Radicular pain of right lower extremity Uterine enlargement Past Family History Family History Grandmother (Maternal) Heart disease Hypertension Grandfather (Paternal) Stroke Hypertension Grandmother (Paternal) Hypertension Liver cancer Grandfather (Maternal) Hypertension Mother Hypertension Denies family history of Ovarian cancer Breast cancer Colorectal cancer Past Surgical History Surgical History H/O breast biopsy [facility] H/O oral surgery tooth extraction History of ankle surgery History of back surgery Right L4-5 microdiscectomy in 2015 History of right salpingo-oophorectomy Hx of tonsillectomy Social History Smoking Status: Never smoker Do You Dip or Chew Tobacco: No Hx Alcohol Use: Yes Alcohol type: wine alcohol intake frequency: 0-2 drinks per day Hx Substance Use: No Physical Exam Vital Signs Last Vital Signs Temp 36.6 C 05/15/21 07:48 Pulse 58 L 05/15/21 07:48 Resp 20 05/15/21 07:48 BP 149/84 H 05/15/21 07:48 Pulse Ox 97 05/15/21 07:48 Testing Laboratory Results 05/14/21 17:44 05/14/21 17:44 PT 10.3 Seconds (9.0-12.0) 05/14/21 21:16 INR 1.0 (0.9-1.1) 05/14/21 21:16 APTT 27.2 Seconds (21.0-31.0) 05/14/21 21:16 Urine Color Yellow 05/14/21 17:24 Urine Appearance Clear (Clear) 05/14/21 17:24 Urine pH 5.0 (4.5-7.5) 05/14/21 17:24 Ur Specific [place] 1.017 (1.000-1.030) 05/14/21 17:24 Urine Protein Negative (Negative) 05/14/21 17:24 Urine Glucose (UA) Negative (Negative) 05/14/21 17:24 Urine Ketones Negative (Negative) 05/14/21 17:24 Urine Nitrite Negative (Negative) 05/14/21 17:24 Ur Leukocyte Esterase Negative (Negative) 05/14/21 17:24 Urine WBC (Auto) 1-5 /hpf (0-5) 05/14/21 17:24 Urine RBC (Auto) 0-4 /hpf (0-4) 05/14/21 17:24 U Hyaline Cast (Auto) 1-5 /lpf (0-5) 05/14/21 17:24 U Epithel Cells (Auto) 10-20 /lpf (0-5) H 05/14/21 17:24 Urine Bacteria (Auto) 1+ (Negative) H 05/14/21 17:24
--- NOTE | 2021-05-15 11:03 | XRay Report ---
XR chest 2V PA/lateral CLINICAL HISTORY: preop clearance. Evaluate cardiopulmonary status COMPARISON STUDY: 05/30/2014 TECHNIQUE: 2 views of the chest FINDINGS: Frontal and lateral radiographs of the chest demonstrate the cardiomediastinal silhouette to be withi n normal limits. The lungs are clear of alveolar opacities. There is no evidence for effusion bilater ally. There is no evidence for vascular congestion. There is no acute osseous pathology. IMPRESSION: No acute cardiopulmonary disease. ACT 112: Negative or not required by law. Electronically signed by: Hang John M.D. 05/15/2021 11:01 AM
[2021-05-15] MEDS ORDERED: BUPIVACAINE 0.5 % 5 MG/1 ML MPF 30ML VIAL ONE (14:32)
[2021-05-15] MEDS ORDERED: EPINEPHrine INJ 1 MG/ML AMP ONE (14:32)
[2021-05-15] MEDS ORDERED: SCOPOLAMINE 1 MG TDSY TD ONE (15:39)
[2021-05-15] MEDS ORDERED: ePHEDrine sulfate 50 MG/ML AMP IV PRN (15:41)
[2021-05-15] MEDS ORDERED: ATROPINE SULFATE 0.1 MG/ML 10ML SYR IV PRN (15:41)
[2021-05-15] MEDS ORDERED: fentaNYL citrate 100 MCG/2 ML VIAL IV PRN (15:41)
[2021-05-15] MEDS ORDERED: ONDANSETRON INJ 2 MG/ML 2 ML VIAL IV PRN ×2 (15:41→19:00)
[2021-05-15] MEDS ORDERED: SCOPOLAMINE 1 MG TDSY TD SCH (15:45)
[2021-05-15] MEDS ORDERED: DEXAMETHASONE SOD INJ 4 MG/ML VIAL ONE (16:17)
[2021-05-15] MEDS ORDERED: GLYCOPYRROLATE 0.2 MG/ML VIAL ONE ×2 (16:17→18:07)
[2021-05-15] MEDS ORDERED: ONDANSETRON INJ 2 MG/ML 2 ML VIAL ONE ×2 (16:17→16:23)
[2021-05-15] MEDS ORDERED: PROPOFOL IV EMULSION 10 MG/ML 20 ML VIAL IV ONE (16:17)
[2021-05-15] MEDS ORDERED: LIDOCAINE 2% 2 ML VIAL/AMP(20MG/ML) INFIL ONE (16:17)
[2021-05-15] MEDS ORDERED: NEOSTIGMINE METHYLSULFATE 1 MG/ML 10ML VIAL ONE (16:17)
[2021-05-15] MEDS ORDERED: fentaNYL citrate 100 MCG/2 ML VIAL ONE (16:18)
[2021-05-15] MEDS ORDERED: MIDAZOLAM HCL 1 MG/ML 2ML VIAL ONE (16:18)
[2021-05-15] MEDS ORDERED: diphenhydrAMINE 50 MG/ML VIAL ONE (16:22)
[2021-05-15] MEDS ORDERED: LARYING-O-JET KIT (LTA) ONE (16:22)
[2021-05-15] MEDS ORDERED: ROCURONIUM BROMIDE 10 MG/ML 5 ML VIAL IV ONE ×3 (16:22→18:08)
--- NOTE | 2021-05-15 16:37 | History & Physical Bridge Note ---
Date of Service May 15, 2021 History & Physical Bridge Note I have examined the patient, reviewed the History & Physical and in the interval since the performance of the History & Physical I have noted the following changes of clinical significance: no changes noted Laminectomy L3-L4 on the left
[2021-05-15] MEDS ORDERED: ceFAZolin 2000MG 2,000 MG/15 ML SYR IV ONE (16:38)
[2021-05-15] MEDS ORDERED: ceFAZolin 2,000 MG/15 ML IV PUSH IV ONE (16:39)
[2021-05-15] MEDS ORDERED: FAMOTIDINE/PF 20 MG/2 ML VIAL IV ONE (17:23)
--- NOTE | 2021-05-15 17:32 | Hospitalist Progress Note ---
Date of Service May 15, 2021 Assessment & Plan (1) Lumbar disc herniation with radiculopathy: Plan: 45 y/o WF with h/o HTN and known LBP Admitted 05/08 through 05/10 for low back pain. MRI revealed large left disc extrusion resulting in moderate central canal stenosis with severe lateral recess narrowing displacing L4 nerve root Seen by Dr. Cano at that time for which patient had a lumbar epidural spinal injection In addition, patient seen by pain management Subsequently discharged home on 05/08 with baclofen, Lidoderm patch, gabapentin, and [place] Overall, no significant pain of the low back but had progressive weakness and paresthesias involving the left leg prompting her to come back to the emergency department Given dexamethasone 10 mg IV by the ED which was continued upon admission Continue baclofen, gabapentin, [place] as outpatient Consult pain management Dr. Younger Consult orthopedic surgery Dr. Cano--> ? Surgical intervention --Appropriate preoperative labs done showing leukocytosis (which is likely steroid-induced) but otherwise lab data unremarkable. Coag studies normal. Will add EKG and CXR (2) Hypertension: Plan: Will continue lisinopril. I suspect patient will have general anesthesia so no contraindication to TIMOTHY inhibitor Plan: Plan of care discussed with Dr. Mejía Admission and Anticipated Discharge Date Admission Date: May 14, 2021 Subjective Patient seen on daily rounds today. Overall reports no significant pain in the back but still having weakness and paresthesias of the left leg. Denies loss of bowel or bladder function awaiting orthopedic consultation. Denies fevers, chills, chest pain, shortness of breath, abdominal pain, nausea or vomiting. Review of Systems Review of Systems: All systems reviewed and are unremarkable except as noted in HPI and below Denies fevers, chills, headache, nasal congestion, sore throat, cough, chest pain, shortness of breath, palpitations, orthopnea, PND, abdominal pain, nausea, vomiting, diarrhea, constipation, dysuria, hematuria, frequency, back pain, joint pain or swelling, easy bruising or bleeding, skin lesions or rashes. Physical Exam Physical Exam: General: Resting comfortably in her hospital bed. NAD. HEENT: Head is AT/NC buccal mucosa is moist and pink Neck: No JVD. Negative hepatojugular reflex Cardiac: RRR without M/G/R Lungs: CTA without W/R/R Abdomen: Normoactive X4. Soft and nontender in all quadrants. Extremities: No peripheral clubbing cyanosis or edema Neuro: A&O X4 cranial nerves II through XII are grossly intact no focal neuro deficits Skin: No obvious skin lesions or rashes Psych: Appropriate affect pleasant and cooperative Results & Data Results & Data ([facility]) Vital Signs (Past 12 Hours) Vital Signs Temp Pulse Pulse Resp BP BP Pulse Ox 05/15/21 15:24 36.9 C 54 L 14 150/88 H 99 05/15/21 07:48 36.6 C 58 L 20 149/84 H 97 Laboratory Results 05/14/21 17:44 05/14/21 17:44 PG Care Time/CCT Total # of Minutes Spent Total Time Spent with Patient: Total time spent is greater than 50% in coordination of care (as documented) at patient's floor/unit and/or counseling patient: Coding Level of Care Code 80072 Subseq Hosp Care Lvl 2 Diagnoses Lumbar disc herniation with radiculopathy M51.16 Hypertension I10
--- NOTE | 2021-05-15 17:42 | Operative Report ---
Post Operative Report Pre & Post Diagnosis Operation Date: 05/15/21 09:20 Pre-Op Diagnosis: Lumbar disc herniation with radiculopathy I identified the patient and participated in the time-out.: Yes Procedure Operation Date: 05/15/21 09:20 Actual Procedures #1 lumbar laminotomy with excision of herniated free fragment L3-L4 on the left Surgeon Albin Cano DO Padded Products Finisher Wali Cornell Estimated Blood Loss 20 Findings Consistent with Post-Op Diagnosis Specimens None Indications This is a 45-year-old female that presents with significant left leg rad iculopathy. She was noting components of breakaway weakness and severe pain and numbness. She had undergone 1 epidural injection with equivocal results and continued to decline and subsequently here for surgical invention. Description of Procedure Patient was met with identified informed consent obtained. Patient was then taken to the operative suite underwent ablation placed in a prone position the Mann table on top of the [place] frame. All bony prominences well-padded eyes inspected to ensure no external pressure placed upon the. This point the lumbar spine was prepped and draped in a sterile fashion. The assistance of fluoroscopy identified the L3-L4 disc and a small midline incision was created overlying this region. Sharp dissection with assistance of Bovie cautery performed down to and exposing the interlaminar space at L3-L4 on the left. Self-retaining retractors placed. Then performed a small laminotomy excising the lateral portion of the ligamentum flavum and a small portion of the medial facet to expose a severely compressed traversing L4 nerve root. I was able to mobilize this medially into very large fragments of free disc material identified and removed. The area was explored several times to ensure all fragments addressed. Incision was then copiously irrigated and closed with subcutaneous Vicryl and 4 Monocryl for final skin closure. Steri-Strip sterile dressings placed. Patient will continue PACU stable condition. Please note Wali Cornell was present at the entire procedure involved in patient positioning complex portions of the surgery and final skin closure. I attest to the content of the Intraoperative Record and any orders documented therein. Any exceptions are noted below.
[2021-05-15] MEDS ORDERED: FLOSEAL HEMOSTATIC MATRIX 10ML TOP ONE (17:45)
--- NOTE | 2021-05-15 18:34 | Anesthesiology Progress Note ---
Date of Service May 15, 2021 Anesthesia Post Procedure Vital Signs Vital Signs: Temp Pulse Pulse Resp BP BP Pulse Ox 05/15/21 18:28 52 L 14 137/78 99 05/15/21 18:20 48 L 14 149/80 H 98 05/15/21 18:10 58 L 12 137/85 100 05/15/21 18:00 36.2 C L 43 L 17 117/63 96 05/15/21 15:24 36.9 C 54 L 14 150/88 H 99 05/15/21 07:48 36.6 C 58 L 20 149/84 H 97 05/14/21 23:43 36.9 C 66 16 152/94 H 95 05/14/21 22:00 37.1 C 60 16 148/80 H 96 05/14/21 20:53 36.8 C 74 18 154/87 H 95 Pain Intensity Left Hip: Pain Intensity: 3 Back: Pain Intensity: 2 Transfer of Care Handoff Completed per policy Notes Mental Status: alert / awake / arousable and participated in evaluation Patient Amnestic to Procedure: Yes Nausea / Vomiting: adequately controlled Pain: adequately controlled Airway Patency, RR, SpO2: stable & adequate BP & HR: stable & adequate Hydration State: stable & adequate Anesthetic Complications: no major complications apparent and Pt Satisfied with anesthetic care
[2021-05-15] MEDS ORDERED: PROMETHAZINE HCL 12.5 MG in SODIUM CHLORIDE 0.9% 50 ML IV PRN (19:00)
[2021-05-15] MEDS ORDERED: LACTATED RINGER'S 1,000 ML IV SCH (19:00)
[2021-05-15] MEDS ORDERED: diphenhydrAMINE Capsule 25 MG CAP PO PRN (19:00)
[2021-05-15] MEDS ORDERED: LORazepam 0.5 MG/1 ML VIAL IV PRN (19:00)
[2021-05-15] MEDS ORDERED: SOD PHOSPHATE/SOD BIPHOSPHATE ENEMA 132 ML BTL PR PRN (19:00)
[2021-05-15] MEDS ORDERED: DO NOT ADMINISTER FLU VACCINE PRN (19:00)
[2021-05-15] MEDS ORDERED: ONDANSETRON 4 MG OD TAB PO PRN (19:00)
[2021-05-15] MEDS ORDERED: LORazepam 0.5 MG TAB PO PRN (19:00)
[2021-05-15] MEDS ORDERED: HYDROCODONE/ACETAMOPHEN 5/325MG TAB PO PRN (19:00)
[2021-05-15] MEDS ORDERED: ALUMINUM/MAGNESIUM SUSP 30 ML UDC PO PRN (19:00)
[2021-05-15] MEDS ORDERED: HYDROmorphone INJ 1 MG/ML SYRINGE IV PRN (19:00)
[2021-05-15] MEDS ORDERED: HYDROmorphone INJ 0.5 MG/0.5 ML SYR IV PRN (19:00)
[2021-05-15] MEDS ORDERED: hydrOXYzine HCl 25 MG TAB PO PRN (19:00)
[2021-05-15] MEDS ORDERED: METOCLOPRAMIDE HCL INJ 5 MG/ML 2 ML VIAL IV PRN (19:00)
[2021-05-15] MEDS ORDERED: bisacodyL 10 MG SUPP PR PRN (19:00)
[2021-05-15] MEDS ORDERED: traMADol HCL 50 MG TABLET PO PRN (19:00)
[2021-05-15] MEDS ORDERED: DO NOT ADMINISTER PNEUMOCOCCAL VACCINE PRN (19:00)
[2021-05-15] MEDS ORDERED: FAMOTIDINE 20 MG TAB PO PRN (19:00)
[2021-05-15] MEDS ORDERED: ACETAMINOPHEN 1,000 MG/100 ML VIAL IV PRN (19:00)
[2021-05-15] MEDS ORDERED: ACETAMINOPHEN 500 MG TAB PO PRN (19:00)
[2021-05-15] MEDS ORDERED: NALOXONE HCL 0.4 MG/1 ML VIAL/CARP IV PRN (19:00)
[2021-05-15] MEDS ORDERED: MAGNESIUM HYDROXIDE SUSP 30 ML UDC PO PRN (19:00)
--- NOTE | 2021-05-15 19:17 | Fluoroscopy Report ---
FL lumbar spine 2-3V CLINICAL HISTORY: L3-4 LAMINECTOMY TECHNIQUE: 1 views were obtained with the C-arm in the OR with the above procedure. Total fluoroscopy time was 6.8 seconds. Total skin dose was 3.37 mGy. Comparison: Comparison is made to lumbar spine radiographs 04/29/2021 FINDINGS/IMPRESSION: Intraoperative images of L3-L4 laminectomy were obtained. Please correlate with intraoperative fluoroscopy and operative report. ACT 112: Negative or not required by law. Electronically signed by: Gio Avila M.D. 05/15/2021 7:15 PM
[2021-05-15] MEDS: KETOROLAC 30 MG/ML VIAL IV SCH (20:05)
[2021-05-15] MEDS ORDERED: DOCUSATE SODIUM/SENNA 50/8.6MG TAB PO SCH (21:00)
[2021-05-16] MEDS: ceFAZolin 2000MG 2,000 MG/15 ML SYR IV SCH ×2 (01:18→10:06)
[2021-05-16] MEDS: KETOROLAC 30 MG/ML VIAL IV SCH ×2 (01:34→08:27)
[2021-05-16] MEDS: POLYETHYLENE (MIRALAX) 17 GM PACK PO SCH ×2 (06:03→11:13)
[2021-05-16 06:30] LABS: Basophils # (auto) 0.01 K/uL (0-0.2); Hematocrit (blood only) 40.5 % (37-47); Hemoglobin 13.6 g/dL (12.0-16.0); Immature Granulocytes # (auto) 0.09 K/uL (0.00-0.02); Immature Granulocytes % (auto) 0.4 %; Lymphocytes % (auto) 7.4 %; Mean Corpuscular Hemoglobin 30.4 pg (25-34); Mean Corpuscular Hgb Conc 33.6 g/dL (32-36); Mean Corpuscular Volume 90.4 fL (80-100); Monocytes # (auto) 2.15 K/uL (0.11-0.59); Monocytes % (auto) 9.9 %; Neutrophils # (auto) 17.77 K/uL (1.4-6.5); Neutrophils % (auto) 82.3 %; Platelet Count 300 K/uL (130-400); RDW Coefficient of Variation 12.9 % (11.5-14.5); RDW Standard Deviation 42.4 fL (36.4-46.3); Red Blood Count 4.48 M/uL (4.2-5.4); White Blood Count 21.62 K/uL (4.8-10.8)
[2021-05-16 07:06] LABS: BUN Creatinine Ratio 24.4 (10-20); Calcium 9.2 mg/dl (8.5-10.1); Creatinine Clr Calc Pharmacy 102.3 ml/min; Est GFR (African American) 91.4 ml/min; Est GFR (Non-African American) 78.8 ml/min; Magnesium 2.1 mg/dl (1.8-2.4)
--- NOTE | 2021-05-16 08:24 | Electrocardiogram Report ---
Test Reason : Blood Pressure : / mmHG Vent. Rate : 048 BPM Atrial Rate : 048 BPM P-R Int : 144 ms QRS Dur : 096 ms QT Int : 478 ms P-R-T Axes : 046 027 042 degrees QTc Int : 427 ms Sinus bradycardia with sinus arrhythmia Otherwise normal ECG When compared with ECG of 30-MAY-2014 10:28, No significant change was found Confirmed by Kory Franklin ([id number]) on 05/16/2021 8:23:45 AM Referred By: REFERRED SELF Confirmed By:Kory Franklin
[2021-05-16] MEDS: CHECK SCOPOLAMINE PATCH PLACEMENT SCH ×2 (08:26)
[2021-05-16] MEDS: CHOLECALCIFEROL 1,000 UNITS 25 MCG TAB PO SCH (08:28)
[2021-05-16] MEDS: CYANOCOBALAMIN 500 MCG TABLET (VITAMIN B-12) PO SCH (08:29)
[2021-05-16] MEDS: GABAPENTIN 300 MG CAP PO SCH (08:29)
[2021-05-16] MEDS: LIDOCAINE 5% 1 PATCH TD SCH (08:31)
[2021-05-16] MEDS ORDERED: dexAMETHasone 6 MG in SYRINGE 0 ML IV SCH (09:00)
--- NOTE | 2021-05-16 09:42 | Hospitalist Progress Note ---
Date of Service May 16, 2021 Assessment & Plan (1) Lumbar disc herniation with radiculopathy: Plan: 45 y/o WF with h/o HTN and known LBP Admitted 05/08 through 05/10 for low back pain. MRI revealed large left disc extrusion resulting in moderate central canal stenosis with severe lateral recess narrowing displacing L4 nerve root Seen by Dr. Cano at that time for which patient had a lumbar epidural spinal injection In addition, patient seen by pain management Subsequently discharged home on 05/08 with baclofen, Lidoderm patch, gabapentin, and [place] Overall, no significant pain of the low back but had progressive weakness and paresthesias involving the left leg prompting her to come back to the emergency department Given dexamethasone 10 mg IV by the ED which was continued upon admission Continue baclofen, gabapentin, [place] as outpatient Consult pain management Dr. Younger Patient went to the OR on 05/15/2020 once with a left L3-[address] Cano and discharged on the - by Dr. Cano (2) Hypertension: Plan: Will continue lisinopril. Admission and Anticipated Discharge Date Admission Date: May 14, 2021 Subjective Patient was seen prior to going home she no complaints or problems Review of Systems Review of Systems: Mild distress and fatigue no headache, no visual changes no speech or swallowing issues no chest pain, pressure or palpitations no shortness of breath, cough or wheezes no abdominal pain, nausea or vomiting, diarrhea or constipation no dysuria, hematuria or frequency no focal joint pain or swelling no back pain, CVA tenderness or radicular pain no bruising, bleeding or rashes no focal signs of weakness or paresthesias to her feet no complaints of anxiety or depression.. Physical Exam Physical Exam: The patient appeared well Vital signs as documented. Lungs are clear to auscultation and appear unlabored Cardiac exam, Rhythm is regular.. No murmurs, rubs or gallops. Abdominal exam reveals normal bowel sounds, soft non tender, no masses Extremities are nonedematous and both pedal pulses are normal. Neurologic exam is alert and oriented, no focal loss of strength or sensation Skin is bandage in place on her back with no significant redness or bruising Psychologically is without concerns for anxiety or depression. Results & Data Results & Data ([facility]) Vital Signs (Past 12 Hours) Vital Signs Temp Pulse Resp BP Pulse Ox 05/16/21 07:09 97.5 F L 57 L 18 116/71 98 05/16/21 03:47 97.3 F L 49 L 16 119/72 96 05/15/21 23:06 97.9 F 48 L 18 131/88 97 05/15/21 22:02 97.9 F 49 L 18 138/86 96 PG Care Time/CCT Total # of Minutes Spent Total Time Spent with Patient: Total time spent is greater than 50% in coordination of care (as documented) at patient's floor/unit and/or counseling patient: Coding Level of Care Code 75489 Subseq Hosp Care Lvl 1 Diagnoses Lumbar disc herniation with radiculopathy M51.16 Hypertension I10
[2021-05-16] MEDS: lisinopril 10 MG TAB PO SCH (09:51)
--- NOTE | 2021-05-16 09:59 | Discharge Summary ---
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 The patient had recently been admitted to the hospital from 05/08-05/09, when she had been seen by pain management consult Dr. Paz Younger, an orthopedic surgeon consult Dr. Albin Cano, and underwent a left L3-4 transforaminal epidural steroid injection. She presented to the emergency department this evening due to the new development of left leg weakness. Principal Diagnosis L3-L4 disc condition with radiculopathy Discharge Data Allergies Allergy/AdvReac Type Severity Reaction Status Date / Time No Known Allergies Allergy Unknown Verified 05/14/21 18:20 Consultations 05/14/21 19:28 ED Decision to Admit Stat 05/14/21 21:00 Consult Orthopedic Surgery Routine Consult Pain Management Routine Procedures Performed Operation Date: 05/15/21 09:20 Actual Procedures p Left L3-L4 Laminectomy(Left) - Albin Cano DO Ordered Studies 05/15/21 14:30 FL lumbar spine 2-3V Routine Hospital Course (1) Lumbar disc herniation with radiculopathy: Patient was admitted with severe left leg pain and progressive weakness and numbness. Underwent lumbar laminotomy the following day. Postop day #1 pain was markedly improved. She is ambulating well. Subsequently discharged home. Discharge orders instructions on the chart for further view. Total Time Total Time Spent Total Time Spent (In Minutes): 20 minutes Discharge Plan Discharge Items Patient Disposition: Home - Self-Care Reason For Visit: LDDD, LUMBAR RADICULOPATHY Discharge Diagnosis: Lumbar disc condition with radiculopathy Activity: As commented below Non-emergency contact: Primary Care Provider Call non-emergency contact if: you have any medication questions Follow-up/Referrals: Sayda Perkins DO [Primary Care Provider] - Diet: Regular Addtl Attending Provider Instructions: ACTIVITY RECOMMENDATIONS: SELF CARE INSTRUCTIONS AFTER A LAMINECTOMY 1. No prolonged sitting (less than 30 minutes for the first 3 weeks after surgery). 2. No bending, lifting more than 5 pounds, or twisting (roll like a log when turning in bed). 3. You may shower 3 days after surgery if no drainage from wound. Thoroughly dry wound. Do not soak in the tub. 4. Please walk as much as you can for exercise. Gradually increase the distance that you walk as your endurance increases. 5. You may drive in 7-10 days if you are comfortable and no longer requiring pain medications. SPECIAL CARE INSTRUCTIONS: VERY IMPORTANT TO READ AND REVIEW A. Your surgical incision has been closed with a cosmetic suture under the skin that will dissolve in about 6 weeks. In 14 days, you can use a pair of clean scissors and cut the suture that is left outside of the skin at the ends of your incision. B. Complications are uncommon, but please contact us if you have any signs or symptoms of: 1. wound infection (fever higher than 102.5 degrees F, redness, separation of wound, drainage, or increasing pain from the incision) 2. blood clots in legs (pain, swelling, redness and warmth in legs) 3. urinary tract infection (fever higher than 102.5 degrees, burning upon urination or increased frequency of urination) 4. nerve problems (inability to walk on your toes or heels, numbness, loss of bowel or bladder control) 5. any other symptoms that concern you. C. Please call the office at if you have any concerns or questions about your operation or recovery. MANAGING PAIN AFTER SPINAL SURGERY 1. Narcotic medication is intended for short-term use and will be provided for surgical pain. Surgical pain usually lasts for a period of 4-6 weeks. Narcotic medication includes Percocet, Vicodin, Darvocet, Tylenol #3 or Lortab. 2. Longer-term pain is more appropriately treated with non-narcotic medication such as Tylenol ES. 3. Muscle spasm is not appropriately treated with narcotics. Muscle relaxers such as Soma, Flexeril or Skelaxin can be used along with Tylenol ES. 4. Remember that we all live with some "aches and pains". This is not unusual or uncommon after an injury or as we get older. 5. We will provide appropriate medication within the normal guidelines of their prescribed use. We will also be very cautious and aware of potential abuse and extended duration of patients' medication needs. 6. Please allow 2-3 days to process refills. Prescriptions will not be mailed but must be picked up at the office. FOLLOW UP VISIT: Keep your scheduled follow-up appointment. Any questions, please call the office at . [facility] Provider Instructions: Patient may begin working from home beginning next Wednesday. Pending Studies at Discharge: No Stand-Alone Forms: My [facility] [employer], Smoking Cessation Medications and DC Order Prescriptions: New hydrocodone-acetaminophen 5-325 mg tablet See Rx Instructions .ROUTE .COMPLEX PRN (Reason: pain) Qty: 20 RF: 0 Continued Mirena 20 mcg/24 hours (5 yrs) 52 mg intrauterine device 1 insert IU CONT RF: 0 lisinopril 10 mg tablet 10 mg PO DAILY RF: 0 baclofen 10 mg Tablet 10 mg PO BID PRN (Reason: muscle spasm) Qty: 30 RF: 0 lidocaine 5 % Adhesive Patch,Medicated 1 patch transdermal QAM Qty: 30 RF: 0 hydrocodone-acetaminophen 5-325 mg tablet 1 tab PO Q4H PRN (Reason: breakthrough pain) Qty: 15 RF: 0 cyanocobalamin (vitamin B-12) [Vitamin B-12] 1,000 mcg Tablet 1,000 mcg PO DAILY RF: 0 gabapentin 300 mg capsule 600 mg PO HS RF: 0 cholecalciferol (vitamin D3) [Vitamin D3] 25 mcg (1,000 unit) Tablet 25 mcg PO DAILY RF: 0 phentermine 15 mg capsule 15 mg PO DAILY PRN (Reason: Unknown) RF: 0 gabapentin 300 mg capsule 300 mg PO BID RF: 0 Discharge Orders: Discharge Order (Routine); Ordered 05/16/21 Ordered By: Albin Caon Admission Data Admit Date/Time: 05/14/21 21:00 Attending Provider: Goran Rutherford Admit Provider: Kyler Grigsby Primary Care Provider: Sayda Perkins Other Providers: Aníbal Mejía ; Kyler Grigsby ; Albin Cano ; Paz Younger
== END 2021-05-16 12:36 | disposition home or self-care (01) | DRG 517 ==
LOC: 3E 13:41 → ED 13:41 → SUATTDRO 21:00 → 3E 22:29